=== PATIENT | female | born 1940 | race Caucasian/White ===

== ENCOUNTER 2018-07-17 18:20 | Emergency (ER) | payer MEDICARE, OTHER ==
[~2018-07-17] VITALS: Ht 152.4 cm; Wt 53.5 kg
[~2018-07-17 18:20] MED LIST: PEPCID AC PO; PROTONIX40 M1 PO; PROTONIX40 M2; PYRIDIUM100 MG PO; Z AMLODIPINE ATO PO; Z CRANBERRY PO; Z.0.CELEBREX200 MG PO; Z.0.COQ-10100 MG PO; Z.0.COREG25 MG PO; Z.0.FISH OIL300 MG PO; Z.0.LISINOPRIL20 MG PO; Z.0.OSCAL D500 MG; Z.0.TYLENOL325 MG PO; Z.0.VITAMIN C500 M1 PO; [UNRECOGNIZED DRUG - CODE] PO; [UNRECOGNIZED DRUG - OTHER] PO; [UNRECOGNIZED DRUG - OTHER] PO; [UNRECOGNIZED DRUG - OTHER] PO
--- NOTE | 2018-07-17 20:23 | Diagnostic Imaging Report ---
Exam: Rib series History: Right rib pain Comparison: None. Findings: Nondisplaced right posterolateral rib fracture. No abnormal soft tissue calcification or soft tissue defect. Impression: Nondisplaced right posterolateral rib fracture Signed by: Dr. Sandoval Cosme M.D. on 07/17/2018 8:20 PM
[2018-07-17 20:27] LABS: CLARITY,URINE CLEAR (CLEAR); COLOR,URINE YELLOW (YELLOW); KETONES,URINE NEGATIVE (NEGATIVE); LEUKOCYTE ESTERASE ,URINE NEGATIVE (NEGATIVE); NITRITE,URINE NEGATIVE (NEGATIVE); PROTEIN,URINE DIPSTICK NEGATIVE (NEGATIVE)
[2018-07-17 20:28] LABS: BILIRUBIN,URINE NEGATIVE (NEGATIVE); URINE UROBILINOGEN 0.2 mg/dL (0.2 - 1)
[2018-07-17 20:45] LABS: RBC,URINE 0-5 /HPF (0-5)
[2018-07-17] MEDS ORDERED: KETOROLAC TROMETHAMINE 30 MG/ML VIAL IM STA (21:43)
[2018-07-17 22:55] VITALS: BP 115/83
== END 2018-07-17 22:56 | disposition home or self-care (01) ==
LOC: ER 18:20
DX: S22.31XA Fracture of one rib, right side, initial encounter for closed fracture (principal); Y93.89 Activity, other specified; Y92.019 Unspecified place in single-family (private) house as the place of occurrence of the external cause; W01.198A Fall on same level from slipping, tripping and stumbling with subsequent striking against other object, initial encounter; I10 Essential (primary) hypertension; G20 Parkinson's disease; Z88.5 Allergy status to narcotic agent; I16.9 Hypertensive crisis, unspecified
CPT/HCPCS: 71101; 81001; 99283; J1885

== ENCOUNTER 2020-04-08 22:42 | Inpatient (IN) | payer MEDICARE, OTHER ==
[~2020-04-08] VITALS: Ht 152.4 cm; Wt 65.8 kg
[2020-04-08] MEDS ORDERED: SODIUM CHLORIDE 0.9% 1000ML 1,000 ML IV STA (22:48)
[2020-04-08] MEDS ORDERED: PIPERACILLIN/TAZO 4.5 GM 100 ML IV STA (22:48)
--- NOTE | 2020-04-08 22:55 | Emergency Department Note ---
History of Present Illnes History of Present Illness History of Present Illness This is a 80 year old female brought from [place] for lethargy and weakness. Seen at bedside unable to provide meaningful history. Arrival Mode: [place] History limited by: condition of the patient Gluing Crew Leader Required: No Severity: severe Duration (how long): hour(s) Timing of current episode: constant Progression: worsening Chronicity: new Context: Reports recent immobilization Relieving factors: none Exacerbating factors: none Associated symptoms: Reports denies other symptoms, Reports weakness Past Medical/Family History Physician Review I have reviewed the patient's past medical and family history. Any updates have been documented here. Past Medical History Clinical Suspicion of Infectio: Yes New/Unexplained Change in Ment: Yes Past Medical History: Hypertension Other Medical History: PARKINSONS Past Surgical History: Cholecysctectomy, T&A Other Surgery: knee surgery carpal tunnel Social History Smoking Cessation: Never Smoker Alcohol Use: None Any Illegal Drug Use: No Other Last Tetanus: UNK Review of Systems ROS Narrative Unable to obtain ROS: altered mental status, critical patient Physical Exam Related Data Allergies: Coded Allergies: hydrocodone (Verified Allergy, Mild, NAUSEA, 12/27/11) Vital signs reviewed: Yes Physical Exam CONSTITUTIONAL Constitutional: Present cachectic, Present diaphoretic, Present distressed, Present ill appearing HENT HENT: Present normocephalic, Present atraumatic, Present oropharynx clear/moist, Present nose normal HENT L/R: Present left ext ear normal, Present right ext ear normal EYES Eyes: Reports PERRL, Reports conjunctivae normal NECK Neck: Present ROM normal PULMONARY Pulmonary: Present effort normal, Present breath sounds normal CARDIOVASCULAR Cardiovascular: Present regular rhythm, Present heart sounds normal, Present capillary refill normal, Present bradycardia GASTROINTESTINAL Abdominal: Present soft, Present nontender, Present bowel sounds normal GENITOURINARY Genitourinary: Present exam deferred SKIN Skin: Present dry, Present pale MUSCULOSKELETAL Musculoskeletal: Present ROM normal NEUROLOGICAL Neurological: Present weakness PSYCHOLOGICAL Results Laboratory Lab results reviewed: Yes Laboratory comments Laboratory Tests Test 04/09/20 04:00 04/09/20 03:35 04/09/20 02:50 04/09/20 01:10 Urine Color [place] (YELLOW) Urine Clarity Cloudy (CLEAR) Urine pH 5.5 (5 - 7) Urine Specific [place] 1.015 (1.010-1.025) Urine Protein 1+ (NEGATIVE) Urine Glucose (UA) Negative (NEGATIVE) Urine Ketones Trace (NEGATIVE) Urine Blood Negative (NEGATIVE) Urine Nitrite Negative (NEGATIVE) Urine Bilirubin Small (NEGATIVE) Urine Urobilinogen 1 mg/dL (0.2 - 1) Urine Leukocyte Esterase Negative (NEGATIVE) Urine RBC 6-10 /HPF (0-5) Urine WBC 6-10 /HPF (0-5) Urine Epithelial Cells Few /LPF (NONE) Urine Bacteria Many /HPF (NONE) Urine Hyaline Casts 2-5 (0-1) Urine Mucus Many (RARE) Lactic Acid Level 2.0 mmol/L (0.5-2.0) Venous Blood pH 7.244 (7.35-7.38) Venous Blood Partial Pressure CO2 40.9 (44-48) Venous Blood Partial Pressure O2 36 (40-41) Venous Blood HCO3 17.7 (21-22) Venous Blood Total Carbon Dioxide 19 Venous Blood Oxygen Saturation 59 Venous Blood Base Excess -10 FiO2 44 % White Blood Count 4.55 x10e3/uL (4.8-10.8) Red Blood Count 5.25 x10e6/uL (3.6-5.1) Hemoglobin 15.2 g/dL (12.0-16.0) Hematocrit 44.6 % (34.2-44.1) Mean Corpuscular Volume 85.0 fL (81-99) Mean Corpuscular Hemoglobin 29.0 pg (28-32) Mean Corpuscular Hemoglobin Concent 34.1 g/dL (31-35) Red Cell Distribution Width 13.8 % (11.7-14.4) Platelet Count 243 x10e3/uL (140-360) Neutrophils (%) (Auto) 77.9 % (38.7-80.0) Lymphocytes (%) (Auto) 15.8 % (18.0-39.1) Monocytes (%) (Auto) 5.7 % (4.4-11.3) Eosinophils (%) (Auto) 0.0 % (0.0-6.0) Basophils (%) (Auto) 0.2 % (0.0-1.0) Neutrophils # (Auto) 3.5 (2.1-6.9) Lymphocytes # (Auto) 0.7 (1.0-3.2) Monocytes # (Auto) 0.3 (0.2-0.8) Eosinophils # (Auto) 0.0 (0.0-0.4) Basophils # (Auto) 0.0 (0.0-0.1) Absolute Immature Granulocyte (auto 0.02 x10e3/uL (0-0.1) Sodium Level 135 mmol/L (136-145) Potassium Level 5.0 mmol/L (3.5-5.1) Chloride Level 98 mmol/L (98-107) Carbon Dioxide Level 17 mmol/L (22-29) Anion Gap 25.0 mmol/L (8-16) Blood Urea Nitrogen 29 mg/dL (7-26) Creatinine 1.33 mg/dL (0.57-1.11) Estimat Glomerular Filtration Rate 39 ML/MIN (60-) BUN/Creatinine Ratio 22 (6-25) Glucose Level 120 mg/dL (74-118) Calcium Level 7.4 mg/dL (8.4-10.2) Total Bilirubin 0.8 mg/dL (0.2-1.2) Aspartate Amino Transf (AST/SGOT) 18 IU/L (5-34) Alanine Aminotransferase (ALT/SGPT) < 6 IU/L (0-55) Alkaline Phosphatase 73 IU/L (40-150) Total Protein 5.8 g/dL (6.5-8.1) Albumin 3.1 g/dL (3.5-5.0) Globulin 2.7 g/dL (2.3-3.5) Albumin/Globulin Ratio 1.1 (0.8-2.0) Test 04/08/20 22:50 04/08/20 22:35 White Blood Count 5.24 x10e3/uL (4.8-10.8) Red Blood Count 5.41 x10e6/uL (3.6-5.1) Hemoglobin 15.7 g/dL (12.0-16.0) Hematocrit 46.7 % (34.2-44.1) Mean Corpuscular Volume 86.3 fL (81-99) Mean Corpuscular Hemoglobin 29.0 pg (28-32) Mean Corpuscular Hemoglobin Concent 33.6 g/dL (31-35) Red Cell Distribution Width 13.7 % (11.7-14.4) Platelet Count 257 x10e3/uL (140-360) Neutrophils (%) (Auto) 76.9 % (38.7-80.0) Lymphocytes (%) (Auto) 15.8 % (18.0-39.1) Monocytes (%) (Auto) 6.7 % (4.4-11.3) Eosinophils (%) (Auto) 0.0 % (0.0-6.0) Basophils (%) (Auto) 0.4 % (0.0-1.0) Neutrophils # (Auto) 4.0 (2.1-6.9) Lymphocytes # (Auto) 0.8 (1.0-3.2) Monocytes # (Auto) 0.4 (0.2-0.8) Eosinophils # (Auto) 0.0 (0.0-0.4) Basophils # (Auto) 0.0 (0.0-0.1) Absolute Immature Granulocyte (auto 0.01 x10e3/uL (0-0.1) Sodium Level 133 mmol/L (136-145) Potassium Level 6.6 mmol/L (3.5-5.1) Chloride Level 96 mmol/L (98-107) Carbon Dioxide Level 16 mmol/L (22-29) Anion Gap 27.6 mmol/L (8-16) Blood Urea Nitrogen 28 mg/dL (7-26) Creatinine 1.38 mg/dL (0.57-1.11) Estimat Glomerular Filtration Rate 37 ML/MIN (60-) BUN/Creatinine Ratio 20 (6-25) Glucose Level 135 mg/dL (74-118) Lactic Acid Level 2.2 mmol/L (0.5-2.0) Calcium Level 8.2 mg/dL (8.4-10.2) Total Bilirubin 0.8 mg/dL (0.2-1.2) Aspartate Amino Transf (AST/SGOT) 19 IU/L (5-34) Alanine Aminotransferase (ALT/SGPT) < 6 IU/L (0-55) Alkaline Phosphatase 83 IU/L (40-150) Creatine Kinase 49 IU/L (29-168) Creatine Kinase MB 1.20 ng/mL (0-5.0) Troponin I 0.002 ng/mL (0-0.300) B-Type Natriuretic Peptide 58.1 pg/mL (0-100) Total Protein 6.5 g/dL (6.5-8.1) Albumin 3.5 g/dL (3.5-5.0) Globulin 3.0 g/dL (2.3-3.5) Albumin/Globulin Ratio 1.2 (0.8-2.0) Imaging Imaging results reviewed: Yes Impressions [place] [id number] Patient Name: HANANE LAMAS MR #: [id number] : 1940 Age/Sex: 80/F Req #: [id number] Adm Physician: Ordered by: SIM NEELY DO Report #: [id number] Location: ER Room/Bed: Procedure: [id number] DX/CHEST SINGLE (PORTABLE) Exam Date: Exam Time: REPORT STATUS: Signed EXAMINATION: CHEST SINGLE (PORTABLE) INDICATION: Line placement COMPARISON: 07/17/2018 FINDINGS: AP view TUBES and LINES: And internal jugular vein central line is present. The laterality of the line is difficult to determine due to patient rotation. The tip of the line projects over the midline mediastinum. LUNGS: Limited evaluation due to rotation. No gross consolidation. PLEURA: No pleural effusion or pneumothorax. HEART AND MEDIASTINUM: The cardiomediastinal silhouette is unremarkable. BONES AND SOFT TISSUES: No acute osseous lesion. Soft tissues are unremarkable. UPPER ABDOMEN: No free air under the diaphragm. Gaseous distention of the colon. IMPRESSION: The location of the presumed internal jugular vein central line is difficult to determine due to patient rotation. Dedicated AP and lateral radiographs are recommended if clinically feasible. Signed by: Yana Mason MD on 04/09/2020 12:02 AM Dictated By: YANA MASON MD 0002 Transcribed By: SCOTITE on 04/09/20 0002 COPY TO: SIM NEELY DO~ [place] [address] Patient Name: HANANE LAMAS MR #: [id number] : 1940 Age/Sex: 80/F Req #: [id number] Adm Physician: Ordered by: SIM NEELY DO Report #: [id number] Location: ER Room/Bed: Procedure: [id number] CT/CT BRAIN WO Exam Date: 04/09/20 Exam Time: 444 REPORT STATUS: Signed CT BRAIN WO HISTORY: Altered mental status COMPARISON: None. Technique: Noncontrast axial scans were obtained from skull base to the vertex. Coronal and sagittal reconstructions obtained from the axial data. One or more of the following dose reduction techniques were used: Automated exposure control, adjustment of the mA and/or kV according to patient size, and/or utilization of iterative reconstruction technique. Beam hardening artifacts obscure some details. DISCUSSION: Scalp/Skull: Unremarkable. Brain sulci: Mildly prominent. Ventricles: Compensatory dilatation. Extra-axial spaces: No masses or fluid collections. Carotid and vertebral artery calcifications are present. Parenchyma: Mild bilateral deep white matter hypodensity is likely chronic microvascular ischemic change. Otherwise, no masses, hemorrhage, or large vascular territory acute infarct. Dural sinuses: No abnormal densities. Sellar/Suprasellar region: Intact. Skull base: Intact. Incidental findings: None. IMPRESSION: 1. No acute intracranial abnormalities. 2. Mild supratentorial chronic microvascular ischemic change. Mild generalized cerebral volume loss. Signed by: Dr. Chino Corbin M.D. on 04/09/2020 5:09 AM Dictated By: CHINO CORBIN MD 8 Transcribed By: SCOTTIE on 04/09/20508 COPY TO: SIM NEELY DO~ Procedures 12 Lead ECG Interpretation ECG Interpretation : ECG: ECG 1 Gluing Crew Leader: Interpreted by ED physician Prior ECG tracings: reviewed Rhythm: sinus rhythm Rate: bradycardia BPM: 55 QRS axis: left ST segments normal: Yes Pacin% capture Clinical Impression: non-specific ECG Central Line Placement Central Line Location: left femoral Time out performed: Yes Patient Placed on Monitor/Puls: Yes Prep: mask Local Anesthetic: lidocaine 1% Central Line Lumen Inserted: triple Post Procedure: sutured in place Post Procedure X-ray: tip of catheter in good condition Complications: none Additional comments Initial attempt at CVC in L IJ under US guidance. During seldinger technique, Sonosite abruptly powered down. Procedure completed but appeared malpositioned with s/p CXR imaging. No pulsatile bleeding or blood aspirated. L IJ CVC diego nakul. Critical Care Time Total Critical Care Time (min): 31 Critcal care necessary due to: shock Critcal care time spent by me: develop tx plan w patient/surrogate, discussion w consultants, discussion w primary provider, evaluation patient response to tx, examination of patient, obtaining hx from patient/surrogate, order/perform tx or interventions, order/review radiographic studies, pulse oximetry, re-evaluation of patient condition Assessment & Plan Medical Decision Making MDM 80 yof presents with weakness Diff Dx : Sepsis, PNA, UTI, CVA, electrolyte abl, and COVID-19 infection Reassessment Reassessment Prolong conversation with Daughter Shanta who at length I explained to the daughters that she required admission. Daughter appeared frustrated and upset that patient's mental status had detoriated at the [place]. I relayed to the daughter that although patient's vital signs were stabilizing , her mentation had not improved. I discussed rescusitative efforts with daughter which included RSI for airway protection but states " I do not want her on a ventillator".. Daughter upset that patient did not receive her oral leva-dopa at midnight to which I replied to her that there was risk of aspiration and that we were prioritizing the ABC's of ACLS over patient's home medicatoion. Shanta expressed frustration multiple time and used expletives and profanity during the conversation. At this point I explained to her that I would not tolerate verbal harassment of myself and my nurses. I stated that if we were to have future conversations that she would remain a semblance of civility and respect to myself and my staff. Assessment & Plan Final Impression: (1) COVID-19 (2) Septic shock (3) UTI (urinary tract infection) (4) Diarrhea Depart Disposition: ADMITTED Home Meds Reported Medications Phenazopyridine Hcl (PYRIDIUM) 100 Mg Tablet, 200 PO TID 02/22/15 Ubidecarenone (Coq-10) 100 Mg Capsule, 100 MG PO DAILY 01/11/12 [place]-3 Fatty Acids (Fish Oil) 300 Mg Capsule, 300 MG PO DAILY 01/11/12 Methylsulfonylmethane (Msm) 500 Mg Capsule, 500 MG PO DAILY 01/11/12 Ascorbic Acid (Vitamin C) 500 Mg Tablet, 500 MG PO DAILY 01/11/12 Cyanocobalamin (Vitamin B-12) 250 Mcg Tablet, 250 MCG PO DAILY 01/11/12 Cranberry Extract (Cranberry) 300 Mg Tablet, 300 MG PO DAILY 01/11/12 Calcium Carbonate (OSCAL D) 500 Mg Tab, DAILY 01/11/12 Carvedilol (Coreg) 25 Mg Tablet, 25 MG PO 1-3XD 12/28/11 Clonidine Hcl/Chlorthalidone (Clorpres 0.3-15 Tablet) 1 Each Tablet, 1 EACH PO 1-3XD 12/28/11 Amlodipine/Atorvastatin (AMLODIPINE-ATORVAST 10-10 MG) 1 Each Tablet, 10 MG PO DAILY 12/28/11 Acetaminophen (Tylenol) 325 Mg Tablet, 325 MG PO PRN 12/28/11 Pantoprazole Sodium (Protonix) 40 Mg Suspdr.pkt, 40 MG PO DAILY 12/28/11 Celecoxib (Celebrex) 200 Mg Capsule, 200 MG PO DAILY 12/28/11 Famotidine (PEPCID AC) 20 Mg Tablet, PO DAILY 12/28/11 Lisinopril (Lisinopril) 20 Mg Tablet, 20 MG PO 1-2XD 12/28/11 Physician Attestation Provider Attestation at 1300 . Volume reassessment done at bedside. Patient with MAP >65 mmHg. pressors required for pressure support SIM NEELY DO Apr 08, 2020 22:55
[2020-04-08 23:27] LABS: BASOPHILS % 0.4 % (0.0-1.0); HEMATOCRIT 46.7 % (34.2-44.1); HEMOGLOBIN 15.7 g/dL (12.0-16.0); LYMPHOCYTES # (AUTO) 0.8 (1.0-3.2); LYMPHOCYTES % 15.8 % (18.0-39.1); MEAN CORPUSCULAR HGB CONC 33.6 g/dL (31-35); MEAN CORPUSCULAR VOLUME 86.3 fL (81-99); MONOCYTES # (AUTO) 0.4 (0.2-0.8); MONOCYTES % 6.7 % (4.4-11.3); NEUTROPHILS % 76.9 % (38.7-80.0); PLATELET COUNT 257 x10e3/uL (140-360); RED BLOOD COUNT 5.41 x10e6/uL (3.6-5.1); RED CELL DISTRIBUTION WIDTH 13.7 % (11.7-14.4)
--- NOTE | 2020-04-09 00:05 | Diagnostic Imaging Report ---
EXAMINATION: CHEST SINGLE (PORTABLE) INDICATION: Line placement COMPARISON: 07/17/2018 FINDINGS: AP view TUBES and LINES: And internal jugular vein central line is present. The laterality of the line is difficult to determine due to patient rotation. The tip of the line projects over the midline mediastinum. LUNGS: Limited evaluation due to rotation. No gross consolidation. PLEURA: No pleural effusion or pneumothorax. HEART AND MEDIASTINUM: The cardiomediastinal silhouette is unremarkable. BONES AND SOFT TISSUES: No acute osseous lesion. Soft tissues are unremarkable. UPPER ABDOMEN: No free air under the diaphragm. Gaseous distention of the colon. IMPRESSION: The location of the presumed internal jugular vein central line is difficult to determine due to patient rotation. Dedicated AP and lateral radiographs are recommended if clinically feasible. Signed by: Josemanuel Dominguez MD on 04/09/2020 12:02 AM
[2020-04-09 00:29] LABS: ALBUMIN 3.5 g/dL (3.5-5.0); ALBUMIN/GLOBULIN RATIO 1.2 (0.8-2.0); ALKALINE PHOSPHATASE 83 IU/L (40-150); ANION GAP 27.6 mmol/L (8-16); BLOOD UREA NITROGEN 28 mg/dL (7-26); CALCIUM 8.2 mg/dL (8.4-10.2); CARBON DIOXIDE 16 mmol/L (22-29); CHLORIDE 96 mmol/L (98-107); CREATINE KINASE 49 IU/L (29-168); GLUCOSE 135 mg/dL (74-118); SODIUM 133 mmol/L (136-145)
[2020-04-09 00:35] LABS: ALANINE AMINOTRANSFERASE < 6 IU/L (0-55); B-TYPE NATRIURETIC PEPTIDE2 58.1 pg/mL (0-100)
[2020-04-09 00:37] LABS: POTASSIUM 6.6 mmol/L (3.5-5.1)
[2020-04-09] MEDS ORDERED: INSULIN REGULAR, HUMAN 100 UNIT/1 ML 3ML VIAL IV STA (00:38)
[2020-04-09] MEDS ORDERED: SODIUM BICARBONATE 8.4% INJ 50 ML SYR IV STA (00:38)
[2020-04-09] MEDS ORDERED: DEXTROSE 50% SYRINGE 50 ML IV STA ×2 (00:38→16:08)
[2020-04-09] MEDS ORDERED: FUROSEMIDE INJ 10 MG/ML 4 ML VIAL IV ONE (00:45)
[2020-04-09 00:50] LABS: BUN/CREATININE RATIO 20 (6-25); CREATININE, SERUM 1.38 mg/dL (0.57-1.11); EST GLOMERULAR FILTRATION RATE 37 ML/MIN (60-)
[2020-04-09 01:58] LABS: ALBUMIN 3.1 g/dL (3.5-5.0); ALBUMIN/GLOBULIN RATIO 1.1 (0.8-2.0); ALKALINE PHOSPHATASE 73 IU/L (40-150); BLOOD UREA NITROGEN 29 mg/dL (7-26); BUN/CREATININE RATIO 22 (6-25); CALCIUM 7.4 mg/dL (8.4-10.2); CARBON DIOXIDE 17 mmol/L (22-29); CHLORIDE 98 mmol/L (98-107); CREATININE, SERUM 1.33 mg/dL (0.57-1.11); EST GLOMERULAR FILTRATION RATE 39 ML/MIN (60-); GLUCOSE 120 mg/dL (74-118); SODIUM 135 mmol/L (136-145)
[2020-04-09 02:03] LABS: ALANINE AMINOTRANSFERASE < 6 IU/L (0-55)
[2020-04-09 02:11] LABS: BASOPHILS % 0.2 % (0.0-1.0); HEMATOCRIT 44.6 % (34.2-44.1); HEMOGLOBIN 15.2 g/dL (12.0-16.0); LYMPHOCYTES # (AUTO) 0.7 (1.0-3.2); LYMPHOCYTES % 15.8 % (18.0-39.1); MEAN CORPUSCULAR HGB CONC 34.1 g/dL (31-35); MONOCYTES # (AUTO) 0.3 (0.2-0.8); MONOCYTES % 5.7 % (4.4-11.3); NEUTROPHILS # (AUTO) 3.5 (2.1-6.9); NEUTROPHILS % 77.9 % (38.7-80.0); PLATELET COUNT 243 x10e3/uL (140-360); RED BLOOD COUNT 5.25 x10e6/uL (3.6-5.1); RED CELL DISTRIBUTION WIDTH 13.8 % (11.7-14.4)
[2020-04-09] MEDS ORDERED: SODIUM CHLORIDE 0.9% 1000ML 1,000 ML IV STA ×2 (02:33→15:20)
[2020-04-09] MEDS ORDERED: CEFTRIAXONE SOD 1 GM/NS 50 ML 50 ML IV SCH (02:45)
[2020-04-09] MEDS ORDERED: NOREPINEPHRINE 8 MG/D5W 250 ML 250 ML ONE (03:46)
[2020-04-09] MEDS ORDERED: NOREPINEPHRINE INJ 4MG/4ML 8 MG in DEXTROSE 5% 250ML 250 ML IV STA (03:49)
[2020-04-09] MEDS: CARBIDOPA/LEVODOPA 25/100 TAB PO SCH ×3 (04:00→20:44)
--- NOTE | 2020-04-09 04:00 | NUR ---
16 fr allen catheter inserted per orders using sterile technique. 75cc clear tea colored urine return noted. specimen collected per orders and sent to lab.
[2020-04-09 04:40] LABS: CLARITY,URINE CLOUDY (CLEAR); COLOR,URINE AMBER (YELLOW)
[2020-04-09 04:41] LABS: BILIRUBIN,URINE SMALL (NEGATIVE); KETONES,URINE TRACE (NEGATIVE); LEUKOCYTE ESTERASE ,URINE NEGATIVE (NEGATIVE); NITRITE,URINE NEGATIVE (NEGATIVE); PROTEIN,URINE DIPSTICK 1+ (NEGATIVE); URINE UROBILINOGEN 1 mg/dL (0.2 - 1)
[2020-04-09 04:54] LABS: BACTERIA,URINE MANY /HPF; EPITHELIAL CELLS,URINE FEW /LPF
[2020-04-09 04:55] LABS: MUCUS,URINE MANY (RARE)
--- NOTE | 2020-04-09 05:10 | NUR ---
bp 107/60. levophed decreased to 10mcg/min.
--- NOTE | 2020-04-09 05:13 | Diagnostic Imaging Report ---
CT BRAIN WO HISTORY: Altered mental status COMPARISON: None. Technique: Noncontrast axial scans were obtained from skull base to the vertex. Coronal and sagittal reconstructions obtained from the axial data. One or more of the following dose reduction techniques were used: Automated exposure control, adjustment of the mA and/or kV according to patient size, and/or utilization of iterative reconstruction technique. Beam hardening artifacts obscure some details. DISCUSSION: Scalp/Skull: Unremarkable. Brain sulci: Mildly prominent. Ventricles: Compensatory dilatation. Extra-axial spaces: No masses or fluid collections. Carotid and vertebral artery calcifications are present. Parenchyma: Mild bilateral deep white matter hypodensity is likely chronic microvascular ischemic change. Otherwise, no masses, hemorrhage, or large vascular territory acute infarct. Dural sinuses: No abnormal densities. Sellar/Suprasellar region: Intact. Skull base: Intact. Incidental findings: None. IMPRESSION: 1. No acute intracranial abnormalities. 2. Mild supratentorial chronic microvascular ischemic change. Mild generalized cerebral volume loss. Signed by: Dr. Chino Corbin M.D. on 04/09/2020 5:09 AM
[2020-04-09] MEDS: SODIUM CHLORIDE 0.9% 1000ML 1,000 ML IV SCH ×2 (05:16→13:44)
--- NOTE | 2020-04-09 05:35 | NUR ---
bp 122/80.levophed decreased to 8mcg/min.
[2020-04-09 08:04] LABS: CREATINE KINASE 98 IU/L (29-168)
--- NOTE | 2020-04-09 10:23 | History and Physical ---
HISTORY OF PRESENT ILLNESS: Ms. Tabor is unable to give us any history. She is a 80-year-old female, whom I was not able to get any history. History is obtained from prior records and from ER information, apparently brought to the emergency room. She has apparently history of hypertension and Parkinson disease, and she came with confusion and changes in mental status. I do not know how her prior status was. PAST MEDICAL HISTORY: Apparently, she has hypertension and Parkinson's. PAST SURGICAL HISTORY: She had cholecystectomy and knee surgery. ALLERGIES: SHE IS ALLERGIC TO HYDROCODONE. PHYSICAL EXAMINATION: GENERAL: The patient does not look in distress, but she is unresponsive. She does not follow any commands. VITAL SIGNS: Temperature is 98, blood pressure is 111/70, O2 saturation 100%, pulse is 59. HEART: Regular rate. LUNGS: Poor inspiratory effort. ABDOMEN: Distended and soft. She has a Vieira catheter. LABORATORY DATA: On the blood work; white count is 4.55, hemoglobin is 15.2, hematocrit is 44.6. Potassium 5.0, creatinine is 1.33. COVID is pending. Urine cultures and blood cultures are pending. Chest x-ray needs to be repeated. Head CT, no acute intracranial abnormalities. ASSESSMENT: 1. Sepsis secondary probably to urinary tract infection. 2. Metabolic encephalopathy secondary to infection. 3. Chronic kidney disease, stage 3. 4. Parkinson disease. 5. History of hypertension. PLAN: At the present time is to admit the patient to ICU. Continue to monitor blood pressure. Continue IV antibiotics. We are going to get a Critical Consult with Dr. Tatum and Infectious Disease consult with Dr. Bernal. COVID testing is still pending. The overall prognosis of the patient is poor. I spent more than 45 minutes examining the patient, reviewing overnight event, lab results, prior medical records, and ER notes. MD BAL Castro/NICKIE /[id number]
--- NOTE | 2020-04-09 14:00 | NUR ---
DAUGHTER CALLED, GIVEN SOME UPDATE INFORMATION, BECAME BILIGERANT WITH STAFF, CURSING, CALLED DISCONNECTED D/T FM AGRESSION TO STAFF.
--- NOTE | 2020-04-09 14:00 | NUR ---
DR ARIAS AND ELICEO CAME STAT TO EVAL PT. EXPRESSED CONCERN OF LOW URINE OUTPT AND DARK BROWN COLOR. VO OF DR FENTON GIVEN AND FOLLOWED BY GIVING D50 IVP AND INSULIN 6 UNITS IVP. SET UP FOR NGT. CT TO BE DONE STAT. PT DOES AWAKE TO PAINFUL STIMULI. VSS. REMAINS OF LEVAPHED. EXPRESSED CONCERN TO R/O PERF BOWEL.
[2020-04-09] MEDS ORDERED: SODIUM BICARBONATE 8.4% 50 ML in SODIUM CHLORIDE 0.45% 1,000 ML IV ONE (14:30)
[2020-04-09 14:56] LABS: ABG HCO3 14 mmol/L (22-26); ABG PCO2 26 mmHg (35-45); ABG PH 7.36 (7.35-7.45); ABG PO2 149 mmHg (80-105)
[2020-04-09] MEDS ORDERED: AZITHROMYCIN 500MG/NS 250 ML 250 ML IV SCH (15:00)
--- NOTE | 2020-04-09 15:00 | NUR ---
ABG PER DR ARIAS, GIVEN TO DR ARIAS. PT AROUSABLE, DOES NOT OPEN EYES, MOANS, WITHDRAWS FROM PAIN. REMAINS ON LEVAPHED, IVF. CLEANED WATERY BROWN BM, SHEETS CLEAN AND PT CLEANED.
[2020-04-09] MEDS ORDERED: INSULIN REGULAR, HUMAN 100 UNIT/1 ML 3ML VIAL ONE (15:17)
[2020-04-09] MEDS ORDERED: DEXTROSE 50% SYRINGE 50 ML IV ONE (15:18)
[2020-04-09] MEDS ORDERED: VANCOMYCIN 1GM/NS 250 ML 250 ML IV ONE (15:30)
[2020-04-09] MEDS ORDERED: DEXTROSE 5% IV SCH (15:30)
[2020-04-09] MEDS ORDERED: SODIUM BICARBONATE 8.4% IV SCH (15:30)
--- NOTE | 2020-04-09 15:41 | Diagnostic Imaging Report ---
EXAMINATION: CHEST SINGLE (PORTABLE) INDICATION: Septic shock COMPARISON: Chest radiograph 04/08/2020 FINDINGS: LINES/TUBES:EKG leads overlie the chest. LUNGS:The lung volumes are low. Mild right basilar patchy opacities. PLEURA:No pleural effusion or pneumothorax. MEDIASTINUM:The cardiomediastinal silhouette appears normal in size and shape. Atherosclerotic calcifications of the thoracic aorta. BONES/SOFT TISSUES:No acute osseous injury. ABDOMEN:No free air under the diaphragm. Status post cholecystectomy. IMPRESSION: Low lung volumes. Mild right basilar patchy opacities, most likely subsegmental atelectasis. Superimposed pneumonitis could also have this appearance and should be excluded clinically. Signed by: Shahbaz Solis MD on 04/09/2020 3:38 PM
[2020-04-09] MEDS ORDERED: DIATRIZOATE MEGL/DIATRIZOA SOD 30 ML BTL PO ONE (15:57)
[2020-04-09] MEDS ORDERED: INSULIN REGULAR, HUMAN 100 UNIT/1 ML 3ML VIAL IV ONE (16:15)
[2020-04-09] MEDS: NOREPINEPHRINE INJ 4MG/4ML 8 MG in DEXTROSE 5% 250ML 250 ML IV SCH (16:30)
--- NOTE | 2020-04-09 16:35 | NUR ---
PT BP DROPPED, RAPID CALLED, MULTIPLE MDS PRESENT, MULTIPLE RT'S AND RN'S. PT GIVEN ONE AMP ATROPINE PER DR ARIAS FOR BRADYCARDIA. INCREASED LEVAPHED. PT BACK TO SINUS WITH NORMO TENSIVE BP'S, SATS 99 ON 2 LPM, PLACED ON END TITLE MEASUREMENTS PER MD. END TITLE 22. MD TO WATCH CLOSE AND RE-EVAL AND NOT TO INTUBATE AT THIS TIME.
[2020-04-09] MEDS ORDERED: CEFTRIAXONE SOD 1 GM VIAL ONE (17:50)
[2020-04-09] MEDS: CEFTRIAXONE SOD 1 GM/NS 50 ML 50 ML IV SCH (17:54)
[2020-04-09] MEDS: FAMOTIDINE 20 MG/2 ML VIAL IV SCH (17:54)
[2020-04-09] MEDS: SODIUM BICARBONATE 8.4% 150 ML in STERILE WATER IV SOLN 1,000 ML IV SCH (17:54)
[2020-04-09] MEDS: ENOXAPARIN SOD INJ 40 MG/0.4 ML SYR SC SCH (17:55)
--- NOTE | 2020-04-09 18:02 | NUR ---
PT HAD LARGE WATERY BROWN LIQUID BM, FOUL SMELL, DR ARIAS AWARE, ORDER RECTAL TUBE, PLACED, PT CLEANED COMPLETELY AND CHANGED ALL LINENS AND LINES. REMAINS IVF'S BICARB DRIP AND LEVAPHED AT 2O MCG/MIN, VSS. HOB ELEVATED 45 DEGREES. ON WAFFLE MATRESS. INCREASE NOTED IN URINE OUTPT AND LIGHTENED SOME. NOW MORE RIGO IN COLOR THAN BROWN. CONTINUE TO MONITOR.
--- NOTE | 2020-04-09 18:16 | NUR ---
ATTEMPTED CALL TO DAUGHTER. LEFT MESSAGE. OBTAINED ADMINISTRATIVE APPROVAL TO ALLOW PTS DAUGHTER TO COME SEE PT.
--- NOTE | 2020-04-09 18:40 | NUR ---
SPOKE TO VERY NICE DAUGHTER, MCKINLEY. UPDATED ON ALL INFORMATION.
[2020-04-09 18:41] LABS: BASOPHILS % 0.2 % (0.0-1.0); HEMATOCRIT 44.7 % (34.2-44.1); HEMOGLOBIN 14.4 g/dL (12.0-16.0); LYMPHOCYTES # (AUTO) 0.8 (1.0-3.2); LYMPHOCYTES % 8.8 % (18.0-39.1); MEAN CORPUSCULAR HEMOGLOBIN 28.6 pg (28-32); MEAN CORPUSCULAR HGB CONC 32.2 g/dL (31-35); MEAN CORPUSCULAR VOLUME 88.7 fL (81-99); MONOCYTES # (AUTO) 0.5 (0.2-0.8); MONOCYTES % 5.9 % (4.4-11.3); NEUTROPHILS # (AUTO) 7.5 (2.1-6.9); NEUTROPHILS % 84.3 % (38.7-80.0); PLATELET COUNT 219 x10e3/uL (140-360); RED BLOOD COUNT 5.04 x10e6/uL (3.6-5.1); RED CELL DISTRIBUTION WIDTH 14.5 % (11.7-14.4)
[2020-04-09 19:00] LABS: ALBUMIN 2.2 g/dL (3.5-5.0); ALBUMIN/GLOBULIN RATIO 0.8 (0.8-2.0); ALKALINE PHOSPHATASE 46 IU/L (40-150); ANION GAP 20.4 mmol/L (8-16); BLOOD UREA NITROGEN 34 mg/dL (7-26); BUN/CREATININE RATIO 26 (6-25); CARBON DIOXIDE 13 mmol/L (22-29); CHLORIDE 109 mmol/L (98-107); CREATININE, SERUM 1.32 mg/dL (0.57-1.11); EST GLOMERULAR FILTRATION RATE 39 ML/MIN (60-); GLUCOSE 100 mg/dL (74-118); POTASSIUM 3.4 mmol/L (3.5-5.1); SODIUM 139 mmol/L (136-145)
[2020-04-09 19:03] LABS: ALANINE AMINOTRANSFERASE < 6 IU/L (0-55)
[2020-04-09 19:04] LABS: CALCIUM 6.6 mg/dL (8.4-10.2); CREATININE,URINE RANDOM 20.81 mg/dL (47-110)
--- NOTE | 2020-04-09 19:21 | NUR ---
BP 120/83. LEVOPHED DECREASED TO 16MCG/MIN
--- NOTE | 2020-04-09 20:00 | NUR ---
PT DAUGHTER AT WINDOW RAISING VOICE WHILE SPEAKING TO MD. PT ESCORTED OUTSIDE. MD ATTEMPTED TO SPEAK WITH DAUGHTER. DAUGHTER WOULD NOT ALLOW MD TO SPEAK. MD DISCONTINUED CONVERSATION. THIS NURSE REMAINED WITH DAUGHTER AND SPOKE TO HER REGARDING PT CONDITION, PLAN OF CARE. DAUGHTER CALM AT THIS TIME. PT DID VERBALIZE FRUSTRATION C VISITATION POLICY. DAUGHTER ALSO VERBALIZED CONCERNS REGARDING PATIENT TESTING POSITIVE FOR COVID. LISTENED TO CONCERNS, INFORMED THAT PT STABLE AND THAT WOULD BE GOING TO ROOM P CT SCAN.
--- NOTE | 2020-04-09 20:30 | NUR ---
BP 133/89. LEVOPHED DECREASED TO 14MCG/MIN.
[2020-04-09] MEDS ORDERED: MEROPENEM 500MG/ NS 50ML 50 ML IV SCH (21:00)
[2020-04-09 21:08] LABS: CREATINE KINASE MB 10.2 ng/mL (0-5.0)
[2020-04-09 21:21] VITALS: BP_SYST 92; BP_SYST 97; BP_DIAS 74
--- NOTE | 2020-04-09 21:21 | Consultation ---
DATE OF CONSULTATION: Pulmonary and Critical Care Consultation HISTORY OF PRESENT ILLNESS: The patient is a 80-year-old woman. She has a history of Parkinson disease. She also has a history of recurrent gastrointestinal problems and prior peptic ulcer. She required hospitalization at [facility] for 2 weeks in May of 2019. She subsequently [facility] to [facility] From [facility], she was transferred to [facility]. She has been at [facility] over the past several months. Apparently, she has problems with recurrent constipation. According to the daughter, they were giving her an enema yesterday when she had difficulty and developed abdominal pain. She was then taken to the emergency department and appears to be unresponsive. She also had decreased urine output. She received antibiotics and intravenous fluids. Her urine output has improved, but is still very dark and she is not responding well. PAST SURGICAL HISTORY: 1. Status post cholecystectomy. 2. Status post knee surgery. PAST MEDICAL HISTORY: 1. Parkinson disease. 2. Recurrent constipation. 3. Peptic ulcer disease. 4. No prior history of respiratory problems. 5. No prior history of heart problems. ALLERGIES: THE PATIENT IS ALLERGIC TO HYDROCODONE. SOCIAL HISTORY: The patient is not a smoker or drinker. Her daughter is very involved in her care and is her power of herb grower. FAMILY HISTORY: Family history is noncontributory. REVIEW OF SYSTEMS: The patient is afebrile. She is not responding well. She has no neck pain. She is not having any chest pain. She has decreased breath sounds at the bases. There is no report of dyspnea or cough. She did have some abdominal discomfort yesterday and had constipation. Apparently, she had problems after an enema that precipitated her transfer to the hospital. She has no leg swelling. She has no rashes. PHYSICAL EXAMINATION: VITAL SIGNS: The patient is afebrile. The blood pressure is 126/84, on Levophed at 12 mcg. Her pulse is 56 and the respiratory rate is 16. HEENT: Shows no facial swelling or erythema. CARDIAC: Reveals regular rate and rhythm with normal S1 and S2. LUNGS: Auscultation of lungs reveals decreased breath sounds at the bases. There is no wheezing. ABDOMEN: Soft and nontender. There is no rebound or guarding. EXTREMITIES: Shows no leg edema or calf tenderness. The patient does have rigidity and increased muscle tone suggestive of Parkinson disease. LABORATORY DATA: The BUN to creatinine ratio is 29 to 1.33, and the carbon dioxide is 17. The potassium is 5. The albumin is 3.1. The white blood cell count is 4.55 and hemoglobin is 15.2. The platelet count is 243. RADIOGRAPHIC DATA: Chest x-ray from yesterday shows no gross consolidations. CT scan of the head shows no acute abnormalities. IMPRESSION: 1. Severe sepsis with unclear source. 2. Acute kidney injury. 3. Parkinson disease. 4. Recurrent constipation and abdominal pain. 5. Metabolic acidosis. 6. Hyperkalemia. PLAN: 1. Continue intravenous fluids. 2. Supplemental bicarbonate. 3. The patient has been jimenez-cultured and will receive broad-spectrum antibiotics. 4. She will need coverage for healthcare associated pathogens because of her history of staying at nursing facilities. 5. CT scan of the abdomen and pelvis. 6. Nephrology consultation. 7. Restart the patient's anti-parkinsonian regimen. 8. Wean Levophed as tolerated. 9. Case discussed with daughter and Nephrology. Vernon Tatum MD LM/INGRIDL /[id number]
--- NOTE | 2020-04-09 21:31 | Consultation ---
DATE OF CONSULTATION: 04/09/2020 HISTORY OF PRESENT ILLNESS: A 80-year-old female, resident of longterm, presently brought into the emergency room, found to be hypotensive and suspicion of sepsis and COVID. Currently, the patient is quite obtunded. She is barely arousable. She has a dressing noted left IJ area. She has an indwelling Vieira catheter with dark yellow urine. She is unable to give me any history. Unable to follow any commands. Unable to get any review of systems. ALLERGIES: SHE IS APPARENTLY ALLERGIC TO HYDROCODONE. LABORATORY DATA: Her labs show urinalysis, specific gravity 1.015, dipstick positive protein, rbc's 6-10, wbc's 6-10, hyaline casts 2-5. Chemistry shows sodium 135, potassium 5, chloride 98, bicarb 17, anion gap 25, BUN 29, creatinine 1.33, blood sugar 120, lactic acid of 2, calcium 7.4. Troponin I less than 0.001. BNP of 58, albumin of 3.1. CBC shows white count 4.5, hemoglobin 15.2, with a platelet count of 243. She had a blood gas 7.3, 626, 149, and 14. She has COVID PCR pending. CURRENT MEDICATIONS: She has been started on carbidopa/levodopa, received 1 g of vancomycin, received 4.5 g of Zosyn yesterday. Currently on Pepcid 20 mg IV b.i.d., enoxaparin 40 subcu daily, insulin sliding scale, meropenem 500 mg q.12, ceftriaxone was stopped, cutting on azithromycin. Received a liter of normal saline and then was on normal saline 125 mL an hour. Currently started on half NS with bicarb. The patient has a daughter. I do not have any history whether the patient is a smoker or not. She lives at [facility]. Past history of Parkinson's apparently. She has been here in the emergency room several times. She apparently had a lumbar facetectomy done in 2011. Most of her visits have been due to abdominal pain or left-sided pain or numbness. This is all in [id number]. She was found to be hypotensive initially. PHYSICAL EXAMINATION: VITAL SIGNS: At the moment, blood pressure is 126/84, pulse rate of 56, respiratory rate 16, oxygen saturation 100%. HEAD AND NECK: Pupils difficult to examine. No icterus noted. Oral mucosa dry. NECK: Neck veins flat. There was some swelling noted right side IJ. Dressing noted. No hematoma. LUNGS: Relatively clear, supine exam. No rales. HEART: S1 and S2 audible. ABDOMEN: Otherwise is tender. No rebound noted. No visceromegaly noted. No deep palpation done. Extremities: Lower extremity examination, no edema. The patient had a CT brain shows no acute intracranial abnormalities, some ischemic changes, chronic noted. IMPRESSION AND PLAN: 1. Acute kidney injury in a patient with septic, was hypotensive, possible coronavirus positive with metabolic acidosis, high anion gap. 2. History of diabetes. 3. Parkinson's, longterm patient. Discussed with Dr. Tatum and bedside RN. We will give one amp D50 and 6 units regular insulin. Discontinue existing IV fluids. Start IV bicarbonate. We will give another bolus of normal saline. Agree with CT abdomen and pelvis. Please avoid IV contrast. I will send urine for sodium and creatinine, calculate fraction excretion of sodium. Also check her CK, was 49. Etiology of acidosis most likely sepsis, hypotension, kidney failure. Serum creatinine is 1.33. Lactic acid is 2. Agree with antibiotics. Overall prognosis is guarded. We will obtain a uric acid level as well. Further recommendations to follow. Ary Gonzales MD SAK/MODL /[id number]
--- NOTE | 2020-04-09 21:43 | NUR ---
BP 116/76 LEVOPHED DECREASED TO 12MCG/MIN
--- NOTE | 2020-04-09 21:47 | Diagnostic Imaging Report ---
EXAM: CT Abdomen and Pelvis WITHOUT contrast INDICATION: ^abdominal pain constipation ^[id number] ^2037 COMPARISON: None. TECHNIQUE: Abdomen and pelvis were scanned utilizing a multidetector helical scanner from the lung base to the pubic symphysis without administration of IV contrast. Absence of intravenous contrast decreases sensitivity for detection of focal lesions and vascular pathology. Coronal and sagittal reformations were obtained. Routine protocol was performed. IV CONTRAST: None ORAL CONTRAST: None COMPLICATIONS: None RADIATION DOSE: Total DLP: 642 mGy*cm Estimated effective dose: (DLP x 0.015 x size factor) mSv CTDIvol has been reviewed. It is below the limits set by the Radiation Protocol Committee (RPC). Dose modulation, iterative reconstruction, and/or weight based adjustment of the mA/kV was utilized to reduce the radiation dose to as low as reasonably achievable. FINDINGS: LINES and TUBES: Left femoral central venous catheter terminates in the external iliac vein. LOWER THORAX: Small bilateral pleural effusions, right greater than left, with adjacent passive atelectasis. HEPATOBILIARY: Limited evaluation. No distinct lesion. No biliary ductal dilatation. GALLBLADDER: Surgically absent. SPLEEN: No splenomegaly. PANCREAS: No focal masses or ductal dilatation. ADRENALS: No adrenal nodules KIDNEYS/URETERS: Grossly unremarkable. GI TRACT: The rectum and sigmoid colon are distended by stool and demonstrate mild circumferential wall thickening. A large bore rectal tube is present. Mild circumferential wall thickening of the distal descending colon with adjacent mesenteric inflammation. No specific evidence of bowel obstruction. PELVIC ORGANS/BLADDER: The urinary bladder is decompressed by a catheter and contains air. The uterus is absent. LYMPH NODES: Poorly evaluated. No gross adenopathy. VESSELS: Scattered atherosclerotic calcifications. PERITONEUM / RETROPERITONEUM: Small amount of perihepatic and deep pelvic free fluid. Stranding of the central mesenteric fat possibly reflective of edema. No discrete free intraperitoneal air. BONES: No acute osseous abnormality. SOFT TISSUES: Grossly unremarkable. IMPRESSION: 1. The sigmoid colon and rectum are distended by stool and demonstrate inflammatory change suggestive of stercoral colitis. Additional nonspecific inflammation of the descending colon. No specific evidence of bowel obstruction. 2. Small amount of nonspecific free fluid in the abdomen and pelvis. Signed by: Josemanuel Dominguez MD on 04/09/2020 9:43 PM
[2020-04-09 22:00] VITALS: BP 113/72
[2020-04-09 23:00] VITALS: BP 115/77
[2020-04-09 23:15] VITALS: BP 80/73
--- NOTE | 2020-04-09 23:21 | Consultation ---
DATE OF CONSULTATION: REASON FOR CONSULTATION: UTI. HISTORY OF PRESENT ILLNESS: This is a 80-year-old white female, not a good source of information, comes to the emergency room for shortness of breath. The patient has history of hypertension, Parkinson's disease, does not really provide any information. She seems to be comfortable to me. The patient when she first came, her white count 5.2, hemoglobin of 15, sodium 135, potassium 5.0 with creatinine of 1.33 with lactic acid 2.2. Her COVID-19 is still pending. The patient is currently on meropenem and vancomycin. PAST MEDICAL HISTORY: Significant for Parkinson's disease and dementia. PAST SURGICAL HISTORY: Not available. ALLERGIES: NKA. SOCIAL HISTORY: There is no smoking, drug abuse, or alcohol abuse. FAMILY HISTORY: Unremarkable. IMAGING: She had a chest x-ray, which showed low lung volume, mild right patchy opacity. PHYSICAL EXAMINATION: GENERAL: Currently alert. VITALS SIGNS: Stable. Currently afebrile. HEENT: She is not icteric. NECK: Supple. CHEST: Few crackles bilateral. COR: S1 and S2. ABDOMEN: Soft. IMPRESSION: Sepsis on admission source probably urinary tract infection. I recommended Rocephin 1 g daily. Await blood cultures, urine cultures. Discontinue meropenem. Discontinue vancomycin. Discontinue Zosyn. Continue with supportive care. Await blood cultures, await urine cultures. Recheck CBC. Recheck Chem panel. Await testing results. We will re-evaluate again later. Thank you for asking me to see this patient. MD ALMA ROSA Nava/NICKIE /[id number]
[2020-04-10] VITALS (33 sets, daily range): BP systolic 74–170; BP diastolic 49–96
[2020-04-10] MEDS ORDERED: AMANTADINE HCL 100 MG CAP PO SCH (01:00)
[2020-04-10] MEDS ORDERED: CARBIDOPA/LEVODOPA 25/100 TAB ONE ×2 (01:51→13:30)
[2020-04-10] MEDS ORDERED: NOREPINEPHRINE 8 MG/D5W 250 ML 500 ML ONE (01:52)
--- NOTE | 2020-04-10 03:31 | Diagnostic Imaging Report ---
EXAM: Abdomen Radiograph 1 View(s) INDICATION: ^NGT VERIFICATION ^Y COMPARISON: None FINDINGS: The tip of the NG tube projects over the gastric body. Gaseous distention of the colon. Large amount of stool within the distal colon. No specific evidence of bowel obstruction. No abnormal soft tissue calcification. No distinct free intraperitoneal air. IMPRESSION: The tip of the nasogastric tube projects over the gastric body. Signed by: Josemanuel Dominguez MD on 04/10/2020 3:27 AM
[2020-04-10] MEDS: CARBIDOPA/LEVODOPA 25/100 TAB PO SCH ×7 (06:00→22:36)
[2020-04-10 06:07] LABS: HEMATOCRIT 40.1 % (34.2-44.1); HEMOGLOBIN 13.8 g/dL (12.0-16.0); MEAN CORPUSCULAR HEMOGLOBIN 28.7 pg (28-32); MEAN CORPUSCULAR HGB CONC 34.4 g/dL (31-35); MEAN CORPUSCULAR VOLUME 83.4 fL (81-99); PLATELET COUNT 209 x10e3/uL (140-360); RED BLOOD COUNT 4.81 x10e6/uL (3.6-5.1); RED CELL DISTRIBUTION WIDTH 14.2 % (11.7-14.4)
[2020-04-10 06:29] LABS: INR 1.45; PROTHROMBIN TIME 18.6 seconds (11.9-14.5)
[2020-04-10 06:58] LABS: ALBUMIN/GLOBULIN RATIO 0.7 (0.8-2.0); ALKALINE PHOSPHATASE 45 IU/L (40-150); ANION GAP 17.7 mmol/L (8-16); BLOOD UREA NITROGEN 39 mg/dL (7-26); BUN/CREATININE RATIO 36 (6-25); CARBON DIOXIDE 18 mmol/L (22-29); CHLORIDE 107 mmol/L (98-107); CREATININE, SERUM 1.07 mg/dL (0.57-1.11); EST GLOMERULAR FILTRATION RATE 50 ML/MIN (60-); GLUCOSE 80 mg/dL (74-118); POTASSIUM 3.7 mmol/L (3.5-5.1); SODIUM 139 mmol/L (136-145)
[2020-04-10 06:59] LABS: ALANINE AMINOTRANSFERASE < 6 IU/L (0-55)
[2020-04-10] MEDS: SODIUM BICARBONATE 8.4% 150 ML in STERILE WATER IV SOLN 1,000 ML IV SCH ×3 (07:01→16:26)
[2020-04-10 07:07] LABS: CALCIUM 6.3 mg/dL (8.4-10.2)
[2020-04-10 07:37] LABS: CREATINE KINASE MB 10.2 ng/mL (0-5.0)
--- NOTE | 2020-04-10 08:13 | Progress Note ---
DATE: 04/10/2020 SUBJECTIVE: Ms. Tabor was unable to give any history. She was admitted to ICU, came back positive for COVID. She is a 80-year-old female with prior history of Parkinson disease, hypertension, and recurrent constipation, brought to the emergency room with shortness of breath and changes in mental status. She was found to be septic, admitted to ICU with sepsis probably due to a UTI. COVID test came back positive. OBJECTIVE: GENERAL: Unresponsive. VITAL SIGNS: Temperature is 96, blood pressure 112/72, heart rate is 71, respiratory rate is 16. LABORATORY DATA: Blood work; white count 9.22, hemoglobin 13.8, hematocrit 44.1, potassium 3.7, creatinine 1.07. COVID came back negative. Cultures are still pending. ASSESSMENT AND PLAN: 1. Positive coronavirus disease infection. 2. Septic shock. 3. Urinary tract infection. 4. Metabolic encephalopathy, multifactorial. 5. Chronic kidney disease, stage 3. 6. Parkinson disease. 7. History of hypertension. PLAN: At present time, she is to use vasopressors as needed. Continue IV fluids. Continue IV antibiotics. Nephrology, Critical Care and Infectious Disease are seeing the patient with me. The overall prognosis of this patient is very poor due to all her medical conditions. MD BAL Castro/MODL /[id number]
--- NOTE | 2020-04-10 08:23 | NUR ---
Pt transfered to [facility] at approx 2140. pt lethargic,non verbal, opens eyes to painful stimuli. coivd 19 detected, oxygen on 2L-3L, stable. notified Dr Savannah Tatum, who ordered to restart pt's home meds, inserted an NGT per order. notified DR Owen Khan---GI, and DR Toro--neuro. Cavadopa-levadopa given as ordered. pt stable, report given to the oncoming RN.
[2020-04-10] MEDS ORDERED: OYST-CAL-D 500MG TABLET PO SCH (09:00)
[2020-04-10] MEDS ORDERED: NON-FORMULARY MEDICATION PO SCH (09:00)
--- NOTE | 2020-04-10 09:58 | Consultation ---
DATE OF CONSULTATION: 04/10/2020 Neurology Consultation HISTORY OF PRESENT ILLNESS: Ms. Tabor is a 80-year-old female with history of Parkinson disease, who was in the [facility], brought in due to confusion, mental status changes and cognitive decline in her clinical status. She is unable to give past medical history. I was asked to contact the family if it possible. I spoke directly with her afterwards daughter and I left a 2nd phone call, which was not picked up with the daughter. She has a known history of Parkinson disease, has history of cholecystectomy, knee surgery, on hydrocodone. She is not able to give review of systems and past medical history given her clinical status. PHYSICAL EXAMINATION: VITAL SIGNS: Temperature is 96.0, pulse 71, blood pressure is 117/74. GENERAL: Her exam shows severely encephalopathic or obtunded elderly female arousable but not able to maintain consciousness. HEENT: Her extraocular muscles are intact. Doll's eyes. Pupils are reactive. She will look at the examiner if stimulated but then will quickly fall asleep. There is no nuchal rigidity. She does have increased muscle tone in neck and arms consistent with Parkinson disease. CARDIOVASCULAR: Regular rate and rhythm. PULMONARY: She is mouth breathing, but she sounds just mild crackles in the bases. I do not hear any rhonchi. ABDOMEN: Soft and nontender. NEURO: Reflexes are 1/4 as far as withdrawal to noxious stimulation. She has at least 3/5 in uppers and lowers bilaterally, but she is not following any commands. ASSESSMENT AND PLAN: The patient comes in with sepsis and COVID-19. Has prior history of Parkinson disease, takes Sinemet, amantadine, and entacapone. Amantadine caused hallucinations. I am going to hold that medicine. I am going to continue her on Sinemet if she can get it safely p.o. and entacapone, but at this time it might be given clinical status, the patient cannot probably need to remain off p.o. medications, so she can safely swallow given the risk of aspiration. GRIFFIN JAVIER MD RR/MODL /[id number]
--- NOTE | 2020-04-10 10:08 | Progress Note ---
DATE: Pulmonary Critical Care progress note SUBJECTIVE: The patient is now in the ICU. She is on nasal cannula. Her Levophed is being weaned. She is down to 8 mcg. She had an NG tube placed and is starting to receive her Sinemet. She also had a CT scan that showed some severe constipation and stercoral colitis. The patient is still not responding well. She was seen by Neurology as well as Nephrology. PHYSICAL EXAMINATION: VITAL SIGNS: The blood pressure is now 100/61 on Levophed at 8 mcg. Pulse ox is 96% on 3 L and the pulse is 64. She is afebrile. HEENT: No facial swelling or erythema. CARDIAC: Regular rate and rhythm with normal S1, S2. LUNGS: Auscultation of lungs reveals rhonchorous breath sounds bilaterally. There is no wheezing. ABDOMEN: Soft, nontender. There is no rebound or guarding. EXTREMITIES: No leg edema or calf tenderness. There is no cyanosis or clubbing. SKIN: No rashes. NEUROLOGICAL: No focal abnormalities. The patient is not responding well. She has increased muscle tone suggestive of Parkinson disease. LABORATORY DATA: BUN to creatinine ratio is 39 to 1.07 and the carbon dioxide is 18 with chloride of 107. Albumin is 2.0. White blood cell count is 9.2 and hemoglobin is 13.8. The platelet count is 209. IMPRESSION: 1. Acute kidney injury. 2. Parkinson disease. 3. Stercoral colitis. 4. Metabolic acidosis. 5. Urinary tract infection with sepsis, present on admission. 6. Viral pneumonia and coronavirus disease-19 infection. PLAN: 1. Continue current antibiotics. 2. GI evaluation later today. 3. Continue IV fluids and repeat kidney testing. 4. Continue Sinemet and prior Parkinson's medications. Follow with suggestions of Neurology. 5. Wean oxygen as tolerated. 6. Wean Levophed. 7. Physical therapy. Case discussed with nursing, Neurology, Nephrology and Respiratory. Greater than 35 minutes in direct critical care time. Vernon Tatum MD LM/INGRIDL /[id number]
[2020-04-10] MEDS: FAMOTIDINE 20 MG/2 ML VIAL IV SCH ×2 (10:11→16:24)
[2020-04-10] MEDS: PANTOPRAZOLE 40 MG 10ML VIAL IV SCH (10:11)
[2020-04-10] MEDS: CYANOCOBALAMIN 1,000 MCG TAB PO SCH (10:12)
[2020-04-10 10:16] LABS: BAND NEUTROPHILS % (MANUAL) 19 %; LYMPHOCYTES % (MANUAL) 9 % (19-48); METAMYELOCYTES % (MANUAL) 3 % (0-0); MONOCYTES % (MANUAL) 2 % (3.4-9.0); NEUTROPHILS % (MANUAL) 67 % (40-74)
[2020-04-10 10:17] LABS: PLATELET ESTIMATE ADEQUATE; PLATELET MORPHOLOGY COMMENT NORMAL; POIKILOCYTOSIS SLIGHT; RBC MORPHOLOGY COMMENT NORMAL
--- NOTE | 2020-04-10 10:49 | Progress Note ---
DATE: 04/10/2020 Nephrology Followup Note SUBJECTIVE: The patient did not appear to be in any acute distress. No new issues overnight. OBJECTIVE: VITAL SIGNS: Blood pressure 100/61, respirations 17, heart rate 64, temperature 96.7. I's and O's 3 L in and 575 out. In view of COVID-19 positive, the patient was not physically examined. LABORATORY DATA: White cell count 9.2, hemoglobin 13.8, hematocrit 40.1, platelets 209. Sodium 139, potassium 3.7, chloride 107, CO2 18 from 13 yesterday, BUN 39, creatinine 1.07, down from 1.3 yesterday. Calcium 6.3. Albumin 2. IMPRESSION: 1. Acute kidney injury with improved serum creatinine and moderate urine output with stable electrolytes and metabolic profile. 2. Mild hypocalcemia, on oscal once a day. 3. Abdominal pain, probably from colitis as seen on CT scan. PLAN: Strict I's and Os. Continue present treatment with IV fluids and bicarb for now. Check BMP in a.m. Increase Os-Leo to 1 tablet twice a day. Further recommendations to follow. Peter Montes MD SA/NICKIE /[id number] MTDD
[2020-04-10] MEDS ORDERED: CYANOCOBALAMIN 1,000 MCG TAB ONE (13:30)
[2020-04-10] MEDS ORDERED: CALCIUM CARBONATE 500 MG CHEWABLE TABS ONE ×2 (13:30)
[2020-04-10] MEDS ORDERED: PANTOPRAZOLE SOD 40 MG TABEC ONE (13:30)
[2020-04-10] MEDS ORDERED: ASCORBIC ACID 500 MG TAB ONE (13:30)
[2020-04-10] MEDS ORDERED: FAMOTIDINE 20 MG/2 ML VIAL IV ONE (13:30)
[2020-04-10] MEDS ORDERED: ENOXAPARIN SOD INJ 40 MG/0.4 ML SYR SC ONE (13:30)
[2020-04-10] MEDS ORDERED: AMANTADINE HCL 100 MG CAP ONE (13:30)
[2020-04-10] MEDS: VANCOMYCIN HCL 1.25 GM in SODIUM CHLORIDE 0.9% 250ML 250 ML IV SCH (14:59)
[2020-04-10] MEDS: NON-FORMULARY MEDICATION PO SCH ×2 (15:02→17:00)
--- NOTE | 2020-04-10 15:47 | NUR ---
he patient is now in the ICU. She is on nasal cannula. Her Levophed is being weaned. She is down to 8 mcg. She had an NG tube placed and is starting to receive her Sinemet. She also had a CT scan that showed some severe constipation and stercoral colitis. The patient is still not responding well. She was seen by Neurology as well as Nephrology. PHYSICAL EXAMINATION: VITAL SIGNS: The blood pressure is now 100/61 on Levophed at 8 mcg. Pulse ox is 96% on 3 L and the pulse is 64. She is afebrile. HEENT: No facial swelling or erythema. CARDIAC: Regular rate and rhythm with normal S1, S2. LUNGS: Auscultation of lungs reveals rhonchorous breath sounds bilaterally. There is no wheezing. ABDOMEN: Soft, nontender. There is no rebound or guarding. EXTREMITIES: No leg edema or calf tenderness. There is no cyanosis or clubbing. SKIN: No rashes. NEUROLOGICAL: No focal abnormalities. The patient is not responding well. She has increased muscle tone suggestive of Parkinson disease. LABORATORY DATA: BUN to creatinine ratio is 39 to 1.07 and the carbon dioxide is 18 with chloride of 107. Albumin is 2.0. White blood cell count is 9.2 and hemoglobin is 13.8. The platelet count is 209. IMPRESSION: 1. Acute kidney injury. 2. Parkinson disease. 3. Stercoral colitis. 4. Metabolic acidosis. 5. Urinary tract infection with sepsis, present on admission. 6. Viral pneumonia and coronavirus disease-19 infection. [id number]
[2020-04-10] MEDS: NOREPINEPHRINE INJ 4MG/4ML 8 MG in DEXTROSE 5% 250ML 250 ML IV SCH (16:24)
[2020-04-10] MEDS: CEFTRIAXONE SOD 1 GM/NS 50 ML 50 ML IV SCH (16:25)
[2020-04-10] MEDS: OYST-CAL-D 500MG TABLET PO SCH (16:26)
[2020-04-10] MEDS: ENOXAPARIN SOD INJ 40 MG/0.4 ML SYR SC SCH (16:26)
--- NOTE | 2020-04-10 16:33 | NUR ---
Nutrition Screen Note RD Recommendation for Physician: -If PO intake is feasible, continue current diet as tolerated and provide Ensure nutrition supplement if meal intake is <50% -If PO intake is not feasible, consider enteral nutrition Plan of Care: RD following, monitoring for tolerance and adequacy Nutrition reason for involvement: Nutrition Risk Trigger (MST 3) Primary Diagnose(s): septic shock, UTI, COVID+ PMH: HTN, parksinson Ht: 60 inches Wt: 118 lbs BMI: 23.0 kg/m2 IBW: [address] Assessment: (04/10/20) Chart reviewed. Labs and meds reviewed. Pt is a 80 year old female admitted with septic shock and UTI. Pt is COVID+; therefore, unable to enter room due to droplet isolation precautions. PO intake is not recorded at this time. It is noted that pt is lethargic and nonverbal. Pt had an NG tube placed per chart. Prior nutrition history is limited. Will continue to monitor. Current Diet: cardiac Malnutrition Evaluation (04/10/20) Unable to assess. Will re-evaluate at follow-up as appropriate. Diet Education Needs Assessment: Diet education not indicated. Nutrition Care Level: low Signed: Crystal Pearce, RD, LD
--- NOTE | 2020-04-10 17:00 | NUR ---
sepsis gp bactermis colitis covid 19 uri
[2020-04-10] MEDS ORDERED: METRONIDAZOLE 500MG/NS 100ML 100 ML IV SCH (18:00)
[2020-04-10] MEDS ORDERED: VANCOMYCIN 250MG/5ML ORAL SOLN PO SCH (18:00)
--- NOTE | 2020-04-10 19:55 | Consultation ---
DATE OF CONSULTATION: 04/09/2020 REASON FOR CONSULTATION: Sepsis and septic shock. HISTORY OF PRESENT ILLNESS: Viji Tabor is a 80-year-old female history of Parkinson disease. The patient was seen on 04/09. She has history of Parkinson disease, gastrointestinal problem, hospitalization at [facility] in May, subsequently went to rehab at the [facility] and then [facility]. She was there for a few months getting physical therapy, but the last few days, getting progressively worse. She constipation. She came to the emergency room where she was found to have hypotensive. I did see her originally on March 10. The patient who has history of Parkinson disease, status post cholecystectomy, knee surgery, osteoarthritis. PAST SURGICAL HISTORY: As above. ALLERGIES: NKA. SOCIAL HISTORY: There is no smoking, drug abuse, or alcohol abuse. FAMILY HISTORY: Noncontributory. Today, I called her daughter and talked to her about her condition. The patient was seen on March 10 when I saw her, I was concerned about sepsis and septic shock. The patient was started on antibiotic. The patient was seen by Pulmonary. Today, her blood cultures coming with gram-positive cocci. Her CAT scan showed colitis. Her white count 9.22. The patient who had a positive COVID, but her chest x-ray does not reveal infiltrate, but the CAT scan showed she had colitis. She was on vasopressors. PHYSICAL EXAMINATION: GENERAL: Currently alert, oriented. VITAL SIGNS: Stable. Currently afebrile. HEENT: She is not icteric. NECK: Supple. CHEST: Clear. HEART: S1 and S2. ABDOMEN: Soft. IMPRESSION: 1. Sepsis with gram-positive bacteremia, source is unclear. Continue vancomycin. Obtain trough. 2. Sepsis with colitis. We will start empirically on Flagyl and oral vancomycin for Clostridium difficile colitis. 3. Discussed with the family. I do not think she is a candidate for steroid. I am really worried about the bacteremia and Clostridium difficile colitis. I do not see an infiltrate on the chest x-ray. I also would not recommend remdesivir because the patient does not have viral pneumonia at present time. I think we need to treat her underlying source of sepsis. Discussed with the family at length. MD ALMA ROSA Nava/NICKIE /[id number]
[2020-04-10] MEDS: METRONIDAZOLE 500MG/NS 100ML 100 ML IV SCH (20:30)
[2020-04-10] MEDS: VANCOMYCIN 250MG/5ML ORAL SOLN PO SCH (20:30)
[2020-04-10] MEDS ORDERED: FAMOTIDINE 20 MG TAB PO SCH (21:00)
[2020-04-11] VITALS (19 sets, daily range): BP systolic 97–195; BP diastolic 58–95
[2020-04-11] MEDS ORDERED: MAGNESIUM HYDROXIDE 30 ML UDC PO STA (00:35)
[2020-04-11] MEDS ORDERED: BISACODYL 10 MG SUPP PR STA (01:01)
[2020-04-11] MEDS: CARBIDOPA/LEVODOPA 25/100 TAB PO SCH ×9 (01:15→22:20)
[2020-04-11] MEDS: METRONIDAZOLE 500MG/NS 100ML 100 ML IV SCH ×4 (02:11→20:37)
[2020-04-11] MEDS: VANCOMYCIN 250MG/5ML ORAL SOLN PO SCH ×4 (05:47→18:49)
[2020-04-11 06:17] LABS: EOSINOPHILS % 0.4 % (0.0-6.0); HEMATOCRIT 32.8 % (34.2-44.1); HEMOGLOBIN 11.3 g/dL (12.0-16.0); LYMPHOCYTES # (AUTO) 0.6 (1.0-3.2); LYMPHOCYTES % 6.2 % (18.0-39.1); MEAN CORPUSCULAR HEMOGLOBIN 28.8 pg (28-32); MEAN CORPUSCULAR HGB CONC 34.5 g/dL (31-35); MEAN CORPUSCULAR VOLUME 83.5 fL (81-99); MONOCYTES # (AUTO) 0.2 (0.2-0.8); MONOCYTES % 2.5 % (4.4-11.3); NEUTROPHILS # (AUTO) 8.3 (2.1-6.9); NEUTROPHILS % 90.5 % (38.7-80.0); PLATELET COUNT 169 x10e3/uL (140-360); RED BLOOD COUNT 3.93 x10e6/uL (3.6-5.1); RED CELL DISTRIBUTION WIDTH 14.1 % (11.7-14.4)
[2020-04-11 06:55] LABS: ALBUMIN 2.2 g/dL (3.5-5.0); ALBUMIN/GLOBULIN RATIO 0.9 (0.8-2.0); ALKALINE PHOSPHATASE 41 IU/L (40-150); ANION GAP 18.8 mmol/L (8-16); BLOOD UREA NITROGEN 45 mg/dL (7-26); BUN/CREATININE RATIO 48 (6-25); CARBON DIOXIDE 23 mmol/L (22-29); CHLORIDE 98 mmol/L (98-107); CREATININE, SERUM 0.93 mg/dL (0.57-1.11); EST GLOMERULAR FILTRATION RATE 58 ML/MIN (60-); GLUCOSE 62 mg/dL (74-118); SODIUM 137 mmol/L (136-145)
[2020-04-11 06:57] LABS: POTASSIUM 2.8 mmol/L (3.5-5.1)
[2020-04-11 07:00] LABS: ALANINE AMINOTRANSFERASE < 6 IU/L (0-55); CALCIUM 6.7 mg/dL (8.4-10.2)
--- NOTE | 2020-04-11 07:09 | NUR ---
Message left with answering service for regarding critical lab values.
--- NOTE | 2020-04-11 07:14 | Diagnostic Imaging Report ---
EXAMINATION: CHEST SINGLE (PORTABLE) INDICATION: ^viral pneumonia ^[id number] ^0420 COMPARISON: 04/09/2020 FINDINGS: AP view TUBES and LINES: New nasogastric tube. LUNGS: Low lung volumes. Interval increased airspace disease at the left lung base. PLEURA: No pleural effusion or pneumothorax. HEART AND MEDIASTINUM: The cardiomediastinal silhouette is unchanged. BONES AND SOFT TISSUES: No acute osseous lesion. Soft tissues are unremarkable. UPPER ABDOMEN: No free air under the diaphragm. Unchanged prominent air-filled loops of bowel. IMPRESSION: Interval increased airspace disease of the left lung base may reflect atelectasis, aspiration, or developing infection. Signed by: Josemanuel Dominguez MD on 04/11/2020 7:11 AM
[2020-04-11] MEDS ORDERED: POTASSIUM CHLORIDE 20MEQ/100ML 200 ML IV ONE (08:30)
[2020-04-11] MEDS ORDERED: CALCIUM GLUCONATE 10% INJ 4.65 MEQ in SODIUM CHLORIDE 0.9% 50ML 50 ML IV ONE (08:30)
[2020-04-11] MEDS ORDERED: POTASSIUM CHLORIDE 20MEQ/15ML UDC NG ONE (08:30)
[2020-04-11] MEDS: NON-FORMULARY MEDICATION PO SCH ×2 (09:00→16:25)
[2020-04-11] MEDS ORDERED: ASCORBIC ACID 500 MG TAB NG SCH (09:00)
[2020-04-11] MEDS ORDERED: ASCORBIC ACID 500 MG TAB PO SCH (09:00)
[2020-04-11] MEDS: FAMOTIDINE 20 MG/2 ML VIAL IV SCH ×2 (09:01→17:33)
[2020-04-11] MEDS: PANTOPRAZOLE 40 MG 10ML VIAL IV SCH (09:01)
[2020-04-11] MEDS: ZINC SULFATE 220 MG CAP NG SCH (09:01)
[2020-04-11] MEDS: OYST-CAL-D 500MG TABLET PO SCH ×2 (09:02→17:33)
[2020-04-11] MEDS: SODIUM BICARBONATE 8.4% 150 ML in STERILE WATER IV SOLN 1,000 ML IV SCH (09:02)
[2020-04-11] MEDS: CYANOCOBALAMIN 1,000 MCG TAB PO SCH (09:02)
--- NOTE | 2020-04-11 09:19 | NUR ---
no acute neurological changes 58 97/61 98.2 lethargic, arousable, not following commands eomi perrl face symmetric increased tone in neck and limbs bradycardic crackles abd soft a/p parkinonsims- advanced, worsening due to physiological stress patient on combination sinemet, entacapone and amantadine at baseline hold amantadine due to risk of agitated hallucinations during acute illness once patient is able to safely take po medications can reintroduce dopaminergics and entacapone cannot use extended release formulation of medication without patient able to safely take po medications
[2020-04-11] MEDS: MAGNESIUM HYDROXIDE 30 ML UDC PO SCH (10:08)
[2020-04-11 10:19] LABS: ANION GAP 17.9 mmol/L (8-16); CREATININE, SERUM 0.95 mg/dL (0.57-1.11)
[2020-04-11] MEDS ORDERED: KLONOPIN0.5 MG PO (10:24)
[2020-04-11] MEDS ORDERED: ROPINIROLE HCL4 MG PO (10:24)
[2020-04-11 10:50] LABS: POTASSIUM 2.9 mmol/L (3.5-5.1)
[2020-04-11 10:51] LABS: CALCIUM 6.7 mg/dL (8.4-10.2)
[2020-04-11] MEDS ORDERED: CLONAZEPAM 0.5 MG TAB PO PRN (11:00)
--- NOTE | 2020-04-11 11:18 | Progress Note ---
DATE: 04/11/2020 Nephrology Followup Note SUBJECTIVE: The patient did not appear to be in any acute distress. In view of COVID-19 positive, physical examination was not done. Case was discussed with the nurse. I's and O's; 2260 in and 650 out. OBJECTIVE: VITAL SIGNS: Blood pressure was 132/81, respirations 22, and heart rate 56. LABORATORY DATA: White cell count 9.2, hemoglobin 11.3, hematocrit 32.8, and platelets 169. Sodium 137, potassium 2.8, chloride 98, CO2 23, BUN 45, creatinine 0.9, and calcium 6.7. IMPRESSION: 1. Hypokalemia and hypocalcemia. 2. Acute kidney injury, improved. Serum creatinine improved rate 0.9. PLAN: Replace potassium 40 mEq IV and 40 mEq p.o. Check labs in the morning along with magnesium and phosphorus. Calcium has already been increased. Further recommendations to follow. Peter Montes MD [facility]/NICKIE /[id number]
--- NOTE | 2020-04-11 11:23 | Progress Note ---
DATE: SUBJECTIVE: The patient was weaned off Levophed. She continues to receive intravenous fluid with bicarbonate. She was seen by Gastroenterology last night and started on a laxative regimen. She was seen again by Nephrology this morning. Her potassium was repleted and her IV fluids were continued. PHYSICAL EXAMINATION: VITAL SIGNS: The patient is afebrile. The blood pressure is 132/81, saturation is 99% on 3 L and the pulse is 56. HEENT: No facial swelling or erythema. CARDIAC: Regular rate and rhythm with normal S1, S2. LUNGS: Auscultation of lungs shows decreased breath sounds at the bases. There is no wheezing. ABDOMEN: Soft, nontender. There is no rebound or guarding. EXTREMITIES: No leg edema or calf tenderness. There is no cyanosis clubbing. SKIN: No rashes. NEUROLOGIC: Rigidity and increased tone consistent with Parkinson's. LABORATORY DATA: Potassium is 2.8. BUN to creatinine ratio is 45 to 0.93 and the albumin is 2.2. The white blood cell count is 9.2 and hemoglobin is 11.3. The platelet count is 169. RADIOGRAPHIC DATA: Chest x-ray shows airspace disease in the left lung. IMPRESSION: 1. Stercoral colitis. 2. Acute kidney injury. 3. Parkinson disease. 4. Viral pneumonia and coronavirus disease-19 infection. 5. Hypokalemia. 6. Metabolic acidosis. PLAN: 1. Continue IV fluids. 2. Continue bowel regimen as recommended by GI. 3. Continue current Parkinson's regimen. 4. Continue physical therapy. 5. Remove femoral line and place PICC line. 6. Continue current antibiotics. Vernon Tatum MD [facility]/MODL /[id number]
[2020-04-11] MEDS: VANCOMYCIN HCL 1.25 GM in SODIUM CHLORIDE 0.9% 250ML 250 ML IV SCH (12:40)
[2020-04-11] MEDS: NOREPINEPHRINE INJ 4MG/4ML 8 MG in DEXTROSE 5% 250ML 250 ML IV SCH (16:30)
[2020-04-11] MEDS: ASCORBIC ACID 500 MG TAB PO SCH (17:33)
[2020-04-11] MEDS: ENOXAPARIN SOD INJ 40 MG/0.4 ML SYR SC SCH (17:33)
--- NOTE | 2020-04-11 18:36 | NUR ---
PAGED DR. Dave FOSTER PERTAINING TO PATIENT'S ABDOMINAL DISTENTION S/T TUBE FEEDINGS. WAITING FOR CALL BACK
[2020-04-11] MEDS ORDERED: MINERAL OIL 132 ML BTL PR ONE (20:00)
[2020-04-11] MEDS: ROPINIROLE HCL 2 MG TAB PO SCH (20:37)
[2020-04-12] VITALS (15 sets, daily range): BP systolic 148–198; BP diastolic 74–111
--- NOTE | 2020-04-12 00:07 | Diagnostic Imaging Report ---
EXAM: Abdomen Radiograph 1 View(s) INDICATION: ^abd distention ^[id number] ^2340 ^Y COMPARISON: Abdominal radiograph 04/10/2020 FINDINGS: Interval increase in gaseous distention of several loops of small bowel within the right abdomen, notably a loop that measures 3.8 cm in dilatation. Persistent gaseous distention of the sigmoid colon and stomach. No distinct free intraperitoneal air. No abnormal soft tissue calcification. A nasogastric tube terminates within the stomach. Advanced lumbar spine degenerative change. IMPRESSION: Progressive gaseous dilatation of small bowel. The frontal considerations include ileus and developing obstruction. Continued follow-up is recommended. Signed by: Josemanuel Dominguez MD on 04/12/2020 12:03 AM
[2020-04-12] MEDS: VANCOMYCIN 250MG/5ML ORAL SOLN PO SCH ×5 (00:48→23:40)
[2020-04-12] MEDS: CARBIDOPA/LEVODOPA 25/100 TAB PO SCH ×4 (01:24→20:25)
[2020-04-12] MEDS: SODIUM BICARBONATE 8.4% 150 ML in STERILE WATER IV SOLN 1,000 ML IV SCH ×3 (01:27→23:40)
[2020-04-12] MEDS: METRONIDAZOLE 500MG/NS 100ML 100 ML IV SCH ×4 (01:27→20:07)
--- NOTE | 2020-04-12 01:35 | NUR ---
Page out to Dr. Dave Khan regarding KUB findings.
--- NOTE | 2020-04-12 05:53 | Diagnostic Imaging Report ---
EXAMINATION: CHEST SINGLE (PORTABLE) INDICATION: ^viral pneumonia COMPARISON: 04/11/2020 FINDINGS: AP view TUBES and LINES: Unchanged nasogastric tube. LUNGS: Unchanged bibasilar opacities, left greater than right. PLEURA: Possible small bilateral pleural effusions are unchanged. HEART AND MEDIASTINUM: The cardiomediastinal silhouette is unchanged. BONES AND SOFT TISSUES: No acute osseous lesion. Soft tissues are unremarkable. UPPER ABDOMEN: No free air under the diaphragm. Gaseous distention of the colon. IMPRESSION: No significant interval change. Signed by: Josemanuel Dominguez MD on 04/12/2020 5:50 AM
[2020-04-12 06:42] LABS: BASOPHILS % 0.5 % (0.0-1.0); EOSINOPHILS % 0.4 % (0.0-6.0); HEMATOCRIT 33.5 % (34.2-44.1); HEMOGLOBIN 11.4 g/dL (12.0-16.0); LYMPHOCYTES # (AUTO) 0.6 (1.0-3.2); LYMPHOCYTES % 7.9 % (18.0-39.1); MEAN CORPUSCULAR HEMOGLOBIN 28.2 pg (28-32); MEAN CORPUSCULAR VOLUME 82.9 fL (81-99); MONOCYTES # (AUTO) 0.3 (0.2-0.8); NEUTROPHILS # (AUTO) 6.9 (2.1-6.9); NEUTROPHILS % 85.8 % (38.7-80.0); PLATELET COUNT 141 x10e3/uL (140-360); RED BLOOD COUNT 4.04 x10e6/uL (3.6-5.1); RED CELL DISTRIBUTION WIDTH 14.5 % (11.7-14.4)
[2020-04-12 07:13] LABS: ALBUMIN/GLOBULIN RATIO 0.8 (0.8-2.0); ALKALINE PHOSPHATASE 48 IU/L (40-150); ANION GAP 11.9 mmol/L (8-16); BLOOD UREA NITROGEN 23 mg/dL (7-26); BUN/CREATININE RATIO 39 (6-25); CALCIUM 7.3 mg/dL (8.4-10.2); CARBON DIOXIDE 33 mmol/L (22-29); CHLORIDE 97 mmol/L (98-107); CREATININE, SERUM 0.59 mg/dL (0.57-1.11); EST GLOMERULAR FILTRATION RATE > 60 ML/MIN (60-); GLUCOSE 108 mg/dL (74-118); SODIUM 139 mmol/L (136-145)
[2020-04-12 07:22] LABS: ALANINE AMINOTRANSFERASE < 6 IU/L (0-55)
[2020-04-12 07:25] LABS: POTASSIUM 2.9 mmol/L (3.5-5.1)
[2020-04-12] MEDS: MAGNESIUM HYDROXIDE 30 ML UDC PO SCH (09:00)
[2020-04-12] MEDS ORDERED: MINERAL OIL 132 ML BTL PR ONE (09:00)
[2020-04-12] MEDS: NON-FORMULARY MEDICATION PO SCH ×2 (09:00→17:00)
[2020-04-12] MEDS: ZINC SULFATE 220 MG CAP NG SCH (09:00)
[2020-04-12] MEDS: CYANOCOBALAMIN 1,000 MCG TAB PO SCH (09:00)
[2020-04-12] MEDS: ASCORBIC ACID 500 MG TAB PO SCH ×2 (09:00→17:00)
[2020-04-12] MEDS: OYST-CAL-D 500MG TABLET PO SCH ×2 (09:00→17:00)
--- NOTE | 2020-04-12 09:40 | NUR ---
no acute neurological changes 58 97/61 98.2 lethargic, arousable, not following commands eomi perrl face symmetric increased tone in neck and limbs bradycardic crackles abd soft a/p parkinonsims- advanced, worsening due to physiological stress patient on combination sinemet, entacapone and amantadine at baseline hold amantadine due to risk of agitated hallucinations during acute illness once patient is able to safely take po medications can reintroduce dopaminergics and entacapone cannot use extended release formulation of medication without patient able to safely take po medications holding parkinsoninan meds as they can contribute to gi upset
--- NOTE | 2020-04-12 09:51 | Diagnostic Imaging Report ---
EXAMINATION: CT of the abdomen and pelvis without contrast. TECHNIQUE: Spiral CT images of the abdomen and pelvis were performed from the lung bases to the lesser trochanters. No intravenous contrast was given per physician's request. Coronal and sagittal reformatted images were obtained. COMPARISON: KUB 04/11/2020 CLINICAL HISTORY:Abdominal distention, possible perforation, septic shock DISCUSSION: ABSENCE OF INTRAVENOUS CONTRAST DECREASES SENSITIVITY FOR DETECTION OF FOCAL LESIONS AND VASCULAR PATHOLOGY. ABDOMEN/PELVIS: LINES AND TUBES: Enteric tube has distal tip at the stomach body. LOWER THORAX: Right lower lobe posteromedial consolidation with air bronchograms. Linear and patchy opacities in the left lower lobe. Marked atherosclerotic calcification of the coronary arteries and to a lesser degree thoracic aorta. Calcification of the mitral annulus. Mild cardiomegaly. HEPATOBILIARY: No focal hepatic lesions. No intra or extrahepatic biliary ductal dilation. GALLBLADDER: Cholecystectomy clips. SPLEEN: No splenomegaly. PANCREAS: No focal masses or ductal dilatation. ADRENALS: No adrenal nodules. KIDNEYS/URETERS: No hydronephrosis or stones. No contour abnormalities.. PELVIC ORGANS/BLADDER: Bladder is decompressed and there is a Vieira catheter in place. Small amount of free air in the nondependent portion of the bladder. PERITONEUM/RETROPERITONEUM: No pneumoperitoneum. No significant ascites. LYMPH NODES: No intra-abdominal,retroperitoneal, pelvic or inguinal lymphadenopathy. VESSELS: Moderate to marked atherosclerotic calcification of the abdominal aorta and proximal iliac vessels. GI TRACT: Dilation of the distal sigmoid and rectum, which measures 8.2 cm in transverse diameter (series 2, image 70), is filled with stool and shows mild circumferential wall thickening. Mild surrounding stranding is noted. There is gradual transition to normal caliber large bowel in the proximal sigmoid colon. Small bowel is not dilated. Stomach is unremarkable. BONES AND SOFT TISSUES: No aggressive lytic or suspicious focal sclerotic lesions. Marked generalized osteopenia. Markedly degenerated discs in the lower thoracic and lumbosacral spine, worse at L5-S1, L2-L3, with associated marked leftward curvature, with apex at L2-L3. Moderate generalized anasarca. IMPRESSION: 1. Exam limited by lack of intravenous contrast. 2. Findings in the distal sigmoid and rectum suggestive of stercoral colitis. Dilation of the distal sigmoid and rectum suggest impaction. 3. Right lower lobe consolidation with air bronchograms and opacities in the left lower lobe consistent with pneumonia. 4. Moderate generalized anasarca. Signed by: Dr. Luís Joseph M.D. on 04/12/2020 9:47 AM
[2020-04-12] MEDS: FAMOTIDINE 20 MG/2 ML VIAL IV SCH ×2 (10:33→17:49)
[2020-04-12] MEDS: PANTOPRAZOLE 40 MG 10ML VIAL IV SCH (10:33)
[2020-04-12] MEDS: VANCOMYCIN HCL 1.25 GM in SODIUM CHLORIDE 0.9% 250ML 250 ML IV SCH (12:00)
[2020-04-12] MEDS ORDERED: CITRATE OF MAGNESIA 300ML BOTTLE PO ONE (14:00)
[2020-04-12] MEDS: NOREPINEPHRINE INJ 4MG/4ML 8 MG in DEXTROSE 5% 250ML 250 ML IV SCH (16:30)
[2020-04-12] MEDS ORDERED: SOD PHOSPHATE/SOD BIPHOSPHATE ENEMA 132 ML BTL PR ONE (17:15)
[2020-04-12] MEDS: ENOXAPARIN SOD INJ 40 MG/0.4 ML SYR SC SCH (18:23)
--- NOTE | 2020-04-12 19:47 | Progress Note ---
DATE: Pulmonary Critical Care Progress Note. SUBJECTIVE: The patient is off Levophed. She is receiving her medicines for Parkinson disease. PHYSICAL EXAMINATION: VITAL SIGNS: Blood pressure is 158/87, pulse is 103, and saturation is 100% on 3 L nasal cannula. HEENT: Shows no facial swelling or erythema. CARDIAC: Reveals regular rate and rhythm with normal S1, S2. LUNGS: Auscultation of lungs reveals crackles at bases. There is no wheezing. ABDOMEN: Soft and nontender. There is no rebound or guarding. EXTREMITIES: Shows no leg edema or calf tenderness. There is no cyanosis or clubbing. SKIN: Shows no rashes. NEUROLOGICAL: Shows no focal abnormalities. LABORATORY DATA: White blood cell count is 8.08, hemoglobin is 11.4, platelet count is 141. Potassium is 2.9, and the BUN to creatinine ratio is 23 to 0.59. Other electrolytes are within normal limits. RADIOGRAPHIC DATA: CT scan of the abdomen and pelvis shows Stercoral colitis with impaction of stool in the distal sigmoid and rectum. There is some consolidation in the right lower lobe and left lower lobe as well. IMPRESSION: 1. Viral pneumonia and COVID-19 infection. 2. Parkinson disease. 3. Acute kidney injury. 4. Stercoral colitis. 5. Hypokalemia. 6. Metabolic acidosis. PLAN: 1. Continue IV fluids and replacement of potassium. 2. Remove femoral line and place PICC line. 3. Continue current Parkinson's regimen. 4. Continue antibiotics. 5. Continue physical therapy. Vernon Tatum MD [facility]/MODL /[id number]
[2020-04-12] MEDS: ROPINIROLE HCL 2 MG TAB PO SCH (20:25)
[2020-04-12] MEDS ORDERED: HYDRALAZINE HCL 20 MG/ML VIAL IV PRN (21:30)
--- NOTE | 2020-04-12 22:00 | NUR ---
Notified by [facility] that PICC team won't be able to be here until /6 during the morning time.
[2020-04-13] VITALS (20 sets, daily range): BP systolic 140–196; BP diastolic 75–114
[2020-04-13] MEDS: METRONIDAZOLE 500MG/NS 100ML 100 ML IV SCH ×4 (01:56→21:15)
[2020-04-13] MEDS ORDERED: MAGNESIUM HYDROXIDE 30 ML UDC PO ONE (03:00)
[2020-04-13] MEDS ORDERED: MINERAL OIL 132 ML BTL PR ONE (04:00)
[2020-04-13] MEDS: CARBIDOPA/LEVODOPA 25/100 TAB PO SCH ×3 (06:17→21:15)
[2020-04-13] MEDS: VANCOMYCIN 250MG/5ML ORAL SOLN PO SCH ×4 (06:17→21:59)
[2020-04-13 06:46] LABS: BASOPHILS % 0.4 % (0.0-1.0); HEMATOCRIT 38.7 % (34.2-44.1); LYMPHOCYTES % 13.7 % (18.0-39.1); MEAN CORPUSCULAR HEMOGLOBIN 28.3 pg (28-32); MEAN CORPUSCULAR HGB CONC 33.6 g/dL (31-35); MEAN CORPUSCULAR VOLUME 84.3 fL (81-99); MONOCYTES # (AUTO) 0.6 (0.2-0.8); MONOCYTES % 8.3 % (4.4-11.3); NEUTROPHILS # (AUTO) 5.4 (2.1-6.9); NEUTROPHILS % 75.4 % (38.7-80.0); PLATELET COUNT 147 x10e3/uL (140-360); RED BLOOD COUNT 4.59 x10e6/uL (3.6-5.1); RED CELL DISTRIBUTION WIDTH 14.6 % (11.7-14.4)
[2020-04-13 07:06] LABS: ALBUMIN/GLOBULIN RATIO 0.8 (0.8-2.0); ALKALINE PHOSPHATASE 51 IU/L (40-150); BLOOD UREA NITROGEN 13 mg/dL (7-26); BUN/CREATININE RATIO 28 (6-25); CALCIUM 7.2 mg/dL (8.4-10.2); CARBON DIOXIDE 36 mmol/L (22-29); CHLORIDE 93 mmol/L (98-107); CREATININE, SERUM 0.47 mg/dL (0.57-1.11); EST GLOMERULAR FILTRATION RATE > 60 ML/MIN (60-); GLUCOSE 85 mg/dL (74-118); SODIUM 139 mmol/L (136-145)
[2020-04-13 07:13] LABS: ALANINE AMINOTRANSFERASE < 6 IU/L (0-55)
--- NOTE | 2020-04-13 07:19 | NUR ---
no acute neurological changes 99.1 70 175/87 lethargic, arousable, not following commands but a wake eomi, interrupted saccades perrl face symmetric increased tone in neck and limbs rrr abd soft reflexes diminshied, increased tone in limbs a/p parkinonsims- advanced, worsening due to physiological stress patient on combination sinemet, entacapone and amantadine at baseline hold amantadine due to risk of agitated hallucinations during acute illness once patient is able to safely take po medications can reintroduce dopaminergics and entacapone reinitiating dopaminergics as patient can tolerate them, dopamine can worsen gastric side effects and may need to be held and titrated down temporarily as part of medical management of acute illness
[2020-04-13] MEDS ORDERED: POTASSIUM CHLORIDE 20MEQ/100ML 100 ML IV ONE (07:30)
[2020-04-13] MEDS ORDERED: POTASSIUM CHLORIDE 20MEQ/15ML UDC NG ONE ×2 (07:30→14:00)
[2020-04-13] MEDS: FAMOTIDINE 20 MG/2 ML VIAL IV SCH ×2 (08:12→17:15)
[2020-04-13] MEDS: ZINC SULFATE 220 MG CAP NG SCH (08:12)
[2020-04-13] MEDS: OYST-CAL-D 500MG TABLET PO SCH ×2 (08:12→17:18)
[2020-04-13] MEDS: PANTOPRAZOLE 40 MG 10ML VIAL IV SCH (08:12)
[2020-04-13] MEDS: ASCORBIC ACID 500 MG TAB PO SCH ×2 (08:12→17:16)
[2020-04-13] MEDS: MAGNESIUM HYDROXIDE 30 ML UDC PO SCH ×2 (08:15→17:15)
[2020-04-13] MEDS: NON-FORMULARY MEDICATION PO SCH ×2 (08:16→17:00)
[2020-04-13 08:32] LABS: LYMPHOCYTES % (MANUAL) 14 % (19-48); MONOCYTES % (MANUAL) 4 % (3.4-9.0); NEUTROPHILS % (MANUAL) 80 % (40-74); PLATELET ESTIMATE ADEQUATE; PLATELET MORPHOLOGY COMMENT NORMAL; RBC MORPHOLOGY COMMENT NORMAL
--- NOTE | 2020-04-13 10:06 | NUR ---
pt covid ppe used pt has renal on case no approval had to call renal dr. baltazar approved. pt has left arm swelling went right upper extremity after timeout with nurse kassy unable to advance rue pt svc some sort of obstruction. nurse kassy informed md pt will need central line hand off to nurse elena
[2020-04-13] MEDS: SODIUM BICARBONATE 8.4% 150 ML in STERILE WATER IV SOLN 1,000 ML IV SCH (10:08)
--- NOTE | 2020-04-13 10:26 | Progress Note ---
DATE: SUBJECTIVE: The patient is weaned off Levophed. Her blood pressure is now high, 170/90. She is more awake. PHYSICAL EXAMINATION: VITAL SIGNS: The blood pressure is 171/90, saturation is 97% on 3 L and the pulse is 84. HEENT: Shows no facial swelling or erythema. CARDIAC: Reveals regular rate and rhythm with normal S1 and S2. LUNGS: Auscultation of lungs reveals rhonchorous breath sounds bilaterally. There is no wheezing. ABDOMEN: Soft, nontender. There is no rebound or guarding. EXTREMITIES: Shows no leg edema or calf tenderness. The patient has increased rigidity and increased tone suggestive of Parkinson disease. LABORATORY DATA: White blood cell count is 7.2 and hemoglobin is 13. The platelet count is 147. The BUN to creatinine ratio is 13 to 0.47, and the potassium is 2. Albumin is 2.0. IMPRESSION: 1. Viral pneumonia and coronavirus disease-2019 infection. 2. Hypokalemia. 3. Acute kidney injury. 4. Severe constipation. 5. Parkinson disease. PLAN: 1. Replete potassium. 2. Continue to give IV fluids and correct renal insufficiency. 3. Complete antibiotics. 4. Continue current regimen for Parkinson disease. Vernon Tatum MD [facility]/MODL /[id number]
[2020-04-13] MEDS: CYANOCOBALAMIN 1,000 MCG TAB PO SCH (10:34)
[2020-04-13] MEDS: LISINOPRIL 20 MG TAB PO SCH (10:37)
[2020-04-13] MEDS: AMLODIPINE BESYLATE 10 MG TAB PO SCH (10:37)
[2020-04-13] MEDS: ATORVASTATIN 10 MG TAB PO SCH (10:38)
--- NOTE | 2020-04-13 10:56 | Progress Note ---
DATE: 04/13/2020 SUBJECTIVE: Ms. Tabor is a 80-year-old female with history of hypertension, Parkinson disease, recurring constipation, came to the emergency room with shortness of breath and changes in mental status. She was found to have a urinary tract infection and COVID pneumonia. She was admitted to ICU. At present time, she is off Levophed and she is on nasal cannula. She is more awake and alert. OBJECTIVE: VITAL SIGNS: Temperature is 98.1, blood pressure 171/90. The heart rate is 84 per minute, respiratory rate is 20. LABORATORY DATA: On the blood work; white count 7.21, hemoglobin 13, hematocrit 38.7, potassium of 2.0, creatinine 0.47. COVID test came back negative. Blood cultures are showing Staph coagulase negative. IMAGING: Chest x-ray done yesterday showed no changes. Abdominal and pelvic CT showed distal sigmoid and rectum suggestive of stercoral colitis with , right lower lobe consolidations. ASSESSMENT: 1. Viral pneumonia secondary to coronavirus disease infection. 2. Parkinson disease. 3. Acute kidney failure. 4. Stercoral colitis. 5. Hypokalemia. 6. Metabolic acidosis. PLAN: At present time is to continue to monitor respiratory status. Continue IV antibiotics and IV fluids. Replace potassium. Continue PT, OT. The overall prognosis of the patient remains guarded. MD [facility]/MODL /[id number]
--- NOTE | 2020-04-13 11:00 | Progress Note ---
DATE: 04/13/2020 SUBJECTIVE: The patient in COVID isolation. Has an NG tube in. Currently receiving IV fluid, nonoliguric. Urine appears a little bit dark, but definitely much improved from before. Kidney function as blood test shows significant improvement. She is in no respiratory distress. Unable to get review of systems due to medical condition. She partially follows commands. OBJECTIVE: VITAL SIGNS: Blood pressure is 110/60, pulse rate 77, and afebrile. HEAD AND NECK: Unchanged. NG tube noted. LUNGS: Harsh vesicular breath sounds, relatively clear. HEART: S1 and S2 audible. ABDOMEN: Soft and nontender. EXTREMITIES: Lower extremity, no edema. LABORATORY DATA: Show sodium 139, potassium 2, bicarbonate 36, creatinine 0.4, and calcium 7.2. IMPRESSION AND PLAN: Profound hypokalemia, acute kidney injury resolved, now hypokalemic and serum creatinine improved. I will discontinue existing IV fluid. Last magnesium was 2.2. We will replace potassium as well as magnesium. Please see orders. MD CARLTON Rodarte/NICKIE /[id number]
[2020-04-13] MEDS: DEXTROSE 5%/0.45% SOD CHL 1,000 ML IV SCH (11:13)
[2020-04-13] MEDS ORDERED: MAGNESIUM SULFATE 2GM/50ML 50 ML IV ONE (11:20)
[2020-04-13] MEDS ORDERED: LIDOCAINE HCL 2% LOCAL 20 ML VIAL ONE (11:35)
[2020-04-13] MEDS ORDERED: LABETALOL HCL 5 MG/ML 20ML VIAL IV STA (12:24)
--- NOTE | 2020-04-13 13:13 | Diagnostic Imaging Report ---
EXAMINATION: CHEST SINGLE (PORTABLE) INDICATION: ^CENTRAL LINE ^[id number] ^1245 COMPARISON: Chest radiograph 04/12/[address] abdomen pelvis 04/12/2020 FINDINGS: AP view TUBES and LINES: Interval placement of a right central venous catheter with tip overlying the superior right atrium. Unchanged infradiaphragmatic NG/OG tube. LUNGS: Lungs are well inflated. Improved right lower lobe consolidation. Stable small left lower lobe consolidation. No pulmonary edema. PLEURA: Trace bilateral pleural effusion, unchanged. No pneumothorax. HEART AND MEDIASTINUM: Stable mildly prominent cardiac silhouette. Markedly tortuous thoracic aorta. BONES AND SOFT TISSUES: No acute osseous lesion. Soft tissues are unremarkable. UPPER ABDOMEN: No free air under the diaphragm. Right upper quadrant cholecystectomy clips. IMPRESSION: Interval placement of a right IJ central venous catheter with tip overlying the superior right atrium. No pneumothorax. Bibasilar consolidations, improved on the right and unchanged on the left. Stable trace bilateral pleural effusions. Signed by: Dr. Mary Kate Blank M.D. on 04/13/2020 1:10 PM
[2020-04-13] MEDS: VANCOMYCIN HCL 1.25 GM in SODIUM CHLORIDE 0.9% 250ML 250 ML IV SCH (13:35)
--- NOTE | 2020-04-13 14:21 | Operative Report ---
DATE OF PROCEDURE: SURGEON: Vernon Tatum MD PROCEDURE: Central line placement under ultrasound guidance. PREOPERATIVE DIAGNOSIS: Parkinson disease. POSTOPERATIVE DIAGNOSIS: Parkinson disease. CONSENT: Consent was obtained from the daughter. ANESTHESIA: 1% lidocaine for local anesthesia. PROCEDURE IN DETAIL: The patient was placed in supine position. The right neck was prepped sterilely with chlorhexidine. A full length sterile drape, sterile gown, and sterile gloves and mask were used. 1% lidocaine was used to anesthetize the skin. The right internal jugular vein was located with ultrasound. It was punctured with a 16-gauge needle under direct visualization. A wire was passed through the needle. The skin was dilated with the dilator. A triple-lumen catheter was placed over the wire by the Seldinger technique. All the ports flushed. COMPLICATIONS: None. ESTIMATED BLOOD LOSS: None. Vernon Tatum MD [facility]/MODL /[id number]
[2020-04-13] MEDS ORDERED: NON-FORMULARY MEDICATION (Carvedilol (Coreg) 12.5 MG) PO SCH (17:00)
[2020-04-13] MEDS: ENOXAPARIN SOD INJ 40 MG/0.4 ML SYR SC SCH (17:18)
[2020-04-13] MEDS: CARVEDILOL 12.5 MG TAB PO SCH (17:18)
--- NOTE | 2020-04-13 18:28 | NUR ---
Dr. Gonzales and Dr. Savannah tatum gave orders for picc line. PICC RN unable to insert picc line. Dr. Savannah Tatum informed and gave orders for central line placement. Telephone consent obtained with Brianda MCGUIRE from POA/daughter due to altered mental status. Dr. Savannah Tatum placed RIJ. Chest x ray done and Dr. Savannah Tatum read results. Orders given to use new central line and remove femoral line.
[2020-04-13] MEDS: ROPINIROLE HCL 2 MG TAB PO SCH (21:15)
[2020-04-14] VITALS (7 sets, daily range): BP systolic 126–174; BP diastolic 83–94
--- NOTE | 2020-04-14 00:53 | NUR ---
dr chung here to see pt. New orders received to get KUB stat and place n/g to lis.
[2020-04-14] MEDS: METRONIDAZOLE 500MG/NS 100ML 100 ML IV SCH ×4 (02:15→22:46)
[2020-04-14] MEDS: CARBIDOPA/LEVODOPA 25/100 TAB PO SCH ×3 (05:05→22:47)
[2020-04-14] MEDS: VANCOMYCIN 250MG/5ML ORAL SOLN PO SCH ×3 (05:05→18:15)
[2020-04-14 06:01] LABS: BASOPHILS # (AUTO) 0.1 (0.0-0.1); EOSINOPHILS % 0.2 % (0.0-6.0); HEMATOCRIT 38.3 % (34.2-44.1); HEMOGLOBIN 12.7 g/dL (12.0-16.0); LYMPHOCYTES # (AUTO) 0.9 (1.0-3.2); LYMPHOCYTES % 14.8 % (18.0-39.1); MEAN CORPUSCULAR HEMOGLOBIN 29.1 pg (28-32); MEAN CORPUSCULAR HGB CONC 33.2 g/dL (31-35); MEAN CORPUSCULAR VOLUME 87.6 fL (81-99); MONOCYTES # (AUTO) 0.5 (0.2-0.8); MONOCYTES % 7.9 % (4.4-11.3); NEUTROPHILS # (AUTO) 4.1 (2.1-6.9); NEUTROPHILS % 64.5 % (38.7-80.0); PLATELET COUNT 150 x10e3/uL (140-360); RED BLOOD COUNT 4.37 x10e6/uL (3.6-5.1); RED CELL DISTRIBUTION WIDTH 14.4 % (11.7-14.4)
--- NOTE | 2020-04-14 06:15 | NUR ---
lab called with k of 2.2. Dr Gonzales notified of K and new orders received.Magnesium and K ordered from blood already drswwillima. Instructed to given 40 meq of kcl over 4 hours . k to be drawn [address] woods results called to him. Endorsed to day rn.
[2020-04-14 06:22] LABS: ALANINE AMINOTRANSFERASE 6 IU/L (0-55); ALBUMIN 1.9 g/dL (3.5-5.0); ALBUMIN/GLOBULIN RATIO 0.8 (0.8-2.0); ALKALINE PHOSPHATASE 49 IU/L (40-150); ANION GAP 10.2 mmol/L (8-16); BLOOD UREA NITROGEN 9 mg/dL (7-26); BUN/CREATININE RATIO 20 (6-25); CALCIUM 7.1 mg/dL (8.4-10.2); CARBON DIOXIDE 36 mmol/L (22-29); CHLORIDE 95 mmol/L (98-107); CREATININE, SERUM 0.44 mg/dL (0.57-1.11); EST GLOMERULAR FILTRATION RATE > 60 ML/MIN (60-); GLUCOSE 134 mg/dL (74-118); SODIUM 139 mmol/L (136-145)
[2020-04-14 06:24] LABS: POTASSIUM 2.2 mmol/L (3.5-5.1)
[2020-04-14 07:11] LABS: MAGNESIUM 2.1 MG/DL (1.3-2.1); PHOSPHORUS 0.7 MG/DL (2.3-4.7)
--- NOTE | 2020-04-14 07:58 | NUR ---
PATIENT IN BED WITH HEAD OF BED ELEVATED, NG TUBE TO LOW SUCTION. BYRNE CATHETER IN PLACE WITH YELLOW URINE. HEEL PROTECTORS IN PLACE. BED IN LOWER POSITION, CALL LIGHT AT REACH.
--- NOTE | 2020-04-14 08:16 | Diagnostic Imaging Report ---
Exam: KUB - 2 views Indication: Abdominal distention Comparison: CT abdomen and pelvis of 04/12/2020 Findings: Gaseous distention of the colon. No free air. Status post cholecystectomy. Levoconvex curvature of the lumbar spine with prominent degenerative changes. Impression: Gaseous distention of the colon without definite evidence of bowel obstruction. No free air. Signed by: Shahbaz Solis MD on 04/14/2020 8:12 AM
--- NOTE | 2020-04-14 08:17 | Diagnostic Imaging Report ---
EXAMINATION: CHEST SINGLE (PORTABLE) INDICATION: Respiratory failure COMPARISON: Chest radiograph of 04/13/2020 FINDINGS: LINES/TUBES:Right IJ central venous catheter unchanged. Enteric tube with tip and side-port in the stomach. EKG leads overlie the chest. LUNGS:The lungs are moderately inflated. Mild bibasilar patchy opacities. PLEURA:No pleural effusion or pneumothorax. MEDIASTINUM:The cardiomediastinal silhouette appears unchanged in size and shape. BONES/SOFT TISSUES:No acute osseous injury. ABDOMEN:No free air under the diaphragm. IMPRESSION: Mild bibasilar patchy opacities, most likely subsegmental atelectasis. Signed by: Shahbaz Solis MD on 04/14/2020 8:14 AM
[2020-04-14] MEDS ORDERED: AMLODIPINE PO SCH (09:00)
[2020-04-14] MEDS ORDERED: ATORVASTATIN PO SCH (09:00)
[2020-04-14] MEDS: NON-FORMULARY MEDICATION PO SCH ×2 (09:00→17:00)
[2020-04-14] MEDS: DEXTROSE 5%/0.45% SOD CHL 1,000 ML IV SCH (09:55)
[2020-04-14] MEDS: POTASSIUM CHLORIDE 10MEQ/100ML 100 ML IV SCH ×4 (09:55→12:43)
[2020-04-14] MEDS: ZINC SULFATE 220 MG CAP NG SCH (10:04)
[2020-04-14] MEDS: FAMOTIDINE 20 MG/2 ML VIAL IV SCH ×2 (10:04→17:28)
[2020-04-14] MEDS: PANTOPRAZOLE 40 MG 10ML VIAL IV SCH (10:04)
[2020-04-14] MEDS: OYST-CAL-D 500MG TABLET PO SCH ×2 (10:05→17:28)
[2020-04-14] MEDS: LISINOPRIL 20 MG TAB PO SCH (10:05)
[2020-04-14] MEDS: ASCORBIC ACID 500 MG TAB PO SCH ×2 (10:05→17:28)
[2020-04-14] MEDS: ATORVASTATIN 10 MG TAB PO SCH (10:05)
[2020-04-14] MEDS: AMLODIPINE BESYLATE 10 MG TAB PO SCH (10:05)
[2020-04-14] MEDS: CYANOCOBALAMIN 1,000 MCG TAB PO SCH (10:05)
[2020-04-14] MEDS: CARVEDILOL 12.5 MG TAB PO SCH ×2 (10:05→17:28)
--- NOTE | 2020-04-14 10:06 | Progress Note ---
DATE: 04/14/2020 SUBJECTIVE: Ms. Tabor is a 80-year-old female with history of hypertension, Parkinson disease, recurrent constipation, came to the emergency room with shortness of breath and changes in mental status. She was found to have a urinary tract infection and COVID pneumonia. She was transferred to ICU. She is off the vasopressors right now. She is on IV antibiotics. OBJECTIVE: VITAL SIGNS: Temperature is 98.5, blood pressure 164/92, pulse is 59, respiratory rate is 16. LABORATORY DATA: On the blood work; white count 6.29, hemoglobin 12.7, hematocrit 38.3. Potassium came back 2.2 and creatinine is 0.44. COVID came back positive. Blood cultures are growing Staph epidermidis. Chest x-ray is showing mild bibasilar patchy opacities. ASSESSMENT: 1. Viral pneumonia secondary to Coronavirus. 2. Parkinson disease. 3. Acute kidney failure. 4. Stercoral colitis. 5. Hypokalemia. 6. Metabolic acidosis. PLAN: At present time is to continue IV antibiotics, IV fluids, replace potassium. PT, OT, and continue to monitor electrolytes. Continue Parkinson's medications. The patient had a central line placed yesterday and the overall prognosis of the patient remains guarded. MD BAL Castro/MODL /[id number]
[2020-04-14 10:32] LABS: BAND NEUTROPHILS % (MANUAL) 2 %; LYMPHOCYTES % (MANUAL) 12 % (19-48); MONOCYTES % (MANUAL) 3 % (3.4-9.0); NEUTROPHILS % (MANUAL) 73 % (40-74)
--- NOTE | 2020-04-14 11:16 | Progress Note ---
DATE: Pulmonary Critical Care Progress Note SUBJECTIVE: The patient is off Levophed. She was transferred out of ICU yesterday. PHYSICAL EXAMINATION: VITAL SIGNS: Blood pressure is 169/92, pulse is 59. HEENT: No facial swelling or erythema. CARDIAC: Regular rate and rhythm with normal S1, S2. LUNGS: Auscultation of lungs reveals crackles at the bases. There is no wheezing. ABDOMEN: Soft, nontender. There is no rebound or guarding. EXTREMITIES: No leg edema or calf tenderness. There is no cyanosis or clubbing. SKIN: No rashes. NEUROLOGICAL: No focal abnormalities. LABORATORY DATA: White blood cell count is 6.3 and hemoglobin is 12.7. Platelet count is 150. Potassium is 2.2, BUN to creatinine ratio is 9 to 0.44. Other electrolytes are within normal limits. Albumin is 1.9. RADIOGRAPHIC DATA: Chest x-ray shows mild basilar infiltrates. IMPRESSION: 1. Viral pneumonia and coronavirus disease-19 infection. 2. Hypokalemia. 3. Parkinson disease. 4. Acute kidney injury. 5. Colitis. PLAN: 1. Replace potassium. 2. Continue gentle hydration. 3. Continue current Parkinson's regimen. 4. Continue current antibiotics. 5. Continue Lovenox. Vernon Tatum MD [facility]/MODL /[id number]
--- NOTE | 2020-04-14 11:57 | NUR ---
VENOUS DUPLEX IN PROGRESS AT BED SIDE. PATIENT IN BED WITH HEAD OF BED ELEVATED. CALL LIGHT AT REACH.
[2020-04-14] MEDS: VANCOMYCIN HCL 1.25 GM in SODIUM CHLORIDE 0.9% 250ML 250 ML IV SCH (12:00)
[2020-04-14] MEDS ORDERED: POTASSIUM CHLORIDE 20MEQ/15ML UDC NG ONE (12:00)
--- NOTE | 2020-04-14 12:32 | NUR ---
BED SIDE VENOUS DUPLEX COMPLETED AT THIS TIME. PATIENT REPOSITIONED IN BED, CALL LIGHT AT REACH.
--- NOTE | 2020-04-14 16:14 | NUR ---
MD IN TO SEE PATIENT, NEW ORDER RECEIVED.
[2020-04-14] MEDS: D5.45%NS/KCL 20MEQ 1,000 ML IV SCH (16:30)
[2020-04-14] MEDS: ENOXAPARIN SOD INJ 40 MG/0.4 ML SYR SC SCH (17:28)
--- NOTE | 2020-04-14 18:48 | NUR ---
SPOKE WITH DR RAO REGARDING ABNORMAL LAB RESULT, NEW ORDER RECEIVED.
[2020-04-14] MEDS ORDERED: POTASSIUM CHLORIDE 10MEQ/100ML 100 ML IV ONE (20:00)
[2020-04-14] MEDS ORDERED: POTASSIUM CHLORIDE 20MEQ/15ML UDC NG NR ×2 (21:00→23:00)
[2020-04-14] MEDS: ROPINIROLE HCL 2 MG TAB PO SCH (22:46)
[2020-04-15] VITALS (8 sets, daily range): BP systolic 120–153; BP diastolic 72–88
[2020-04-15] MEDS: VANCOMYCIN 250MG/5ML ORAL SOLN PO SCH ×5 (00:34→17:21)
--- NOTE | 2020-04-15 01:10 | NUR ---
SPOKE TO MD FOSTER. NEW ORDERS RECEIVED.
[2020-04-15] MEDS ORDERED: SOD PHOSPHATE/SOD BIPHOSPHATE ENEMA 132 ML BTL PR ONE (01:30)
--- NOTE | 2020-04-15 01:50 | NUR ---
PROVIDED BYRNE CARE VIA CASTILE SOAP WIPES. DAILY CHG BATH GIVEN. CENTRAL LINE CARE PROVIDED.
[2020-04-15] MEDS: METRONIDAZOLE 500MG/NS 100ML 100 ML IV SCH ×2 (03:03→10:05)
[2020-04-15] MEDS: CARBIDOPA/LEVODOPA 25/100 TAB PO SCH ×3 (07:25→17:21)
--- NOTE | 2020-04-15 07:39 | NUR ---
infectious disease progress note Patient is seen and examined chart reviewed events noted Medication list reviewed discussed with the medical team he patient is off Levophed. She was transferred out of ICU yesterday. PHYSICAL EXAMINATION: VITAL SIGNS: Blood pressure is 169/92, pulse is 59. HEENT: No facial swelling or erythema. CARDIAC: Regular rate and rhythm with normal S1, S2. LUNGS: Auscultation of lungs reveals crackles at the bases. There is no wheezing. ABDOMEN: Soft, nontender. There is no rebound or guarding. EXTREMITIES: No leg edema or calf tenderness. There is no cyanosis or clubbing. SKIN: No rashes. NEUROLOGICAL: No focal abnormalities. LABORATORY DATA: White blood cell count is 6.3 and hemoglobin is 12.7. Platelet count is 150. Potassium is 2.2, BUN to creatinine ratio is 9 to 0.44. Other electrolytes are within normal limits. Albumin is 1.9. RADIOGRAPHIC DATA: Chest x-ray shows mild basilar infiltrates. IMPRESSION: 1. Viral pneumonia and coronavirus disease-19 infection. 2. Hypokalemia. 3. Parkinson disease. 4. Acute kidney injury. 5. Colitis. 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
--- NOTE | 2020-04-15 07:59 | NUR ---
pt out of icu 98.8 145/86 84 EENT: No facial swelling or erythema. CARDIAC: Regular rate and rhythm with normal S1, S2. LUNGS: Auscultation of lungs reveals crackles at the bases. There is no wheezing. ABDOMEN: Soft, nontender. There is no rebound or guarding. EXTREMITIES: No leg edema or calf tenderness. There is no cyanosis or clubbing. SKIN: No rashes. NEUROLOGICAL: No focal abnormalities. increased tone slow responsiveness mild tremors noted reflexes diminished a/p parkinsons disease continue dopaminergicsn and monitor for response or side effects
--- NOTE | 2020-04-15 08:10 | NUR ---
REPORT GIVEN TO DAYSHIFT NURSE. ALERT. RESTING IN BED. NO SIGNS IV INFILTRATION. BED LOCKED AND IN LOW POSITION. CALL LIGHT WITHIN REACH. BED ALARM ACTIVATED.
[2020-04-15] MEDS: NON-FORMULARY MEDICATION PO SCH ×2 (09:00→17:00)
[2020-04-15] MEDS: AMANTADINE HCL 100 MG CAP PO SCH ×2 (09:00→17:21)
[2020-04-15] MEDS: FAMOTIDINE 20 MG/2 ML VIAL IV SCH ×2 (10:05→17:20)
[2020-04-15] MEDS: D5.45%NS/KCL 20MEQ 1,000 ML IV SCH (10:05)
[2020-04-15] MEDS: ZINC SULFATE 220 MG CAP NG SCH (10:05)
[2020-04-15] MEDS: PANTOPRAZOLE 40 MG 10ML VIAL IV SCH (10:05)
[2020-04-15] MEDS: ASCORBIC ACID 500 MG TAB PO SCH ×2 (10:06→17:21)
[2020-04-15] MEDS: ATORVASTATIN 10 MG TAB PO SCH (10:06)
[2020-04-15] MEDS: AMLODIPINE BESYLATE 10 MG TAB PO SCH (10:06)
[2020-04-15] MEDS: LISINOPRIL 20 MG TAB PO SCH (10:06)
[2020-04-15] MEDS: OYST-CAL-D 500MG TABLET PO SCH ×2 (10:06→17:21)
[2020-04-15] MEDS: CYANOCOBALAMIN 1,000 MCG TAB PO SCH (10:06)
[2020-04-15] MEDS: CARVEDILOL 12.5 MG TAB PO SCH ×2 (10:06→17:21)
--- NOTE | 2020-04-15 10:10 | Progress Note ---
DATE: 04/15/2020 SUBJECTIVE: Ms. Tabor is a 80-year-old female with hypertension, Parkinson disease, and constipation, came to the emergency room with shortness of breath and changes in mental status. Ruled in for COVID with pneumonia. She also had a urinary tract infection, was in ICU for several days, transferred to the COVID unit now. OBJECTIVE: VITAL SIGNS: Temperature is 98.3, blood pressure is 128/72, respiratory rate 21, and pulse is 94. LABORATORY DATA: On the blood work, white count 6.29, hemoglobin 12.7, and hematocrit 38.3. Potassium 2.9. We are going to replace it. The COVID test came back negative. Blood culture showing Staphylococcus coagulase negative and Staphylococcus epidermidis. Chest x-ray done on the 7th yesterday showed mild bibasilar patchy opacities, most likely atelectasis. ASSESSMENT: 1. Viral pneumonia secondary to coronavirus disease infection. 2. Sepsis secondary to coronavirus disease and to urinary tract infection. 3. Hypokalemia. 4. Parkinson disease. 5. Stercoral colitis. 6. Metabolic acidosis. PLAN: At the present time is to continue IV fluids, replace potassium, IV antibiotics, PT, OT, and continue Parkinson medications. MD BAL Castro/MODL /[id number]
--- NOTE | 2020-04-15 12:36 | Progress Note ---
DATE: SUBJECTIVE: The patient is more awake. She is now on room air. She is receiving supplemental potassium and IV fluids. PHYSICAL EXAMINATION: VITAL SIGNS: The patient is afebrile. The vital signs are stable. The blood pressure is 128/72. HEENT: Shows no facial swelling or erythema. CARDIAC: Reveals regular rate and rhythm with normal S1 and S2. LUNGS: Auscultation of lungs reveals decreased breath sounds at the bases. There is no wheezing. ABDOMEN: Soft and nontender. There is no rebound or guarding. EXTREMITIES: Shows no leg edema or calf tenderness. IMPRESSION: 1. Hypokalemia. 2. Viral pneumonia and COVID-19 infection. 3. Parkinson disease. 4. Acute kidney injury. 5. Colitis. PLAN: 1. Continue to replace potassium. 2. Gentle hydration. 3. Continue current regimen for Parkinson disease. 4. Continue Lovenox. 5. Complete antibiotics. 6. Physical therapy. Vernon Tatum MD [facility] /[id number]
[2020-04-15] MEDS ORDERED: NEOMYCIN/POLYMYX/GRAM (OPTH) 10 ML BTL OP SCH (15:00)
[2020-04-15] MEDS: ARTIFICIAL TEARS (OPTH) 15 ML BTL OU SCH (17:20)
[2020-04-15] MEDS: ENOXAPARIN SOD INJ 40 MG/0.4 ML SYR SC SCH (17:21)
[2020-04-15] MEDS ORDERED: POTASSIUM PHOSPHATE 20 MM in SODIUM CHLORIDE 0.9% 250ML 250 ML IV ONE (18:00)
--- NOTE | 2020-04-15 18:31 | NUR ---
Patient's daughter talked to Dr. Toro for [address] Toro told patient's family to bring inhalation carbidopa/levidopa. It was brought, patient was unable to use it. Patient's family was called and informed. In the box they also brought patient's apple watch, which was left in the box because patient is very lethargic. Patient new medication for Parkinson is not able to be crushed, pharmacy was called. Pharmacy ordered the liquid version, which will arrive tomorrow. Patient left eye also has a blister like coming from under the eyelid, and this magazine writer assessed it together and he ordered eye drops BID.
[2020-04-15] MEDS: ROPINIROLE HCL 2 MG TAB PO SCH (21:36)
[2020-04-16] VITALS (8 sets, daily range): BP systolic 106–156; BP diastolic 69–98
--- NOTE | 2020-04-16 00:10 | NUR ---
Vieira care given.repositioned.ng tube is in place.iv fluid running.Dr.M Khan is into see the patient.stable condition.
[2020-04-16] MEDS: D5.45%NS/KCL 20MEQ 1,000 ML IV SCH ×3 (00:15→22:00)
[2020-04-16] MEDS: CARBIDOPA/LEVODOPA 25/100 TAB PO SCH ×4 (00:15→21:21)
[2020-04-16] MEDS: VANCOMYCIN 250MG/5ML ORAL SOLN PO SCH ×4 (00:15→17:15)
--- NOTE | 2020-04-16 06:00 | NUR ---
had a small amount of bowel movement.repositioned.
[2020-04-16 06:42] LABS: ALANINE AMINOTRANSFERASE < 6 IU/L (0-55); ALBUMIN 1.8 g/dL (3.5-5.0); ALBUMIN/GLOBULIN RATIO 0.8 (0.8-2.0); ALKALINE PHOSPHATASE 51 IU/L (40-150); ANION GAP 8.9 mmol/L (8-16); BLOOD UREA NITROGEN 9 mg/dL (7-26); BUN/CREATININE RATIO 20 (6-25); CARBON DIOXIDE 31 mmol/L (22-29); CHLORIDE 98 mmol/L (98-107); CREATININE, SERUM 0.44 mg/dL (0.57-1.11); EST GLOMERULAR FILTRATION RATE > 60 ML/MIN (60-); GLUCOSE 66 mg/dL (74-118); SODIUM 135 mmol/L (136-145)
[2020-04-16 06:58] LABS: CALCIUM 6.9 mg/dL (8.4-10.2)
[2020-04-16 06:59] LABS: POTASSIUM 2.9 mmol/L (3.5-5.1)
--- NOTE | 2020-04-16 07:05 | NUR ---
BED SIDE SHIFT REPORT GIVEN TO ONCOMING RN.STABLE CONDITION.
[2020-04-16 07:16] LABS: MAGNESIUM 1.5 MG/DL (1.3-2.1); PHOSPHORUS 2.4 MG/DL (2.3-4.7)
--- NOTE | 2020-04-16 07:54 | NUR ---
PARKINSONIAN NON ONFOCAL 85 97.9 133/74 Patient awake, bradykinetic eom paresis CARDIAC: Regular rate and rhythm with normal S1, S2. LUNGS: Auscultation of lungs reveals crackles at the bases. There is no wheezing. ABDOMEN: Soft, nontender. There is no rebound or guarding. EXTREMITIES: No leg edema or calf tenderness. There is no cyanosis or clubbing. SKIN: No rashes. NEUROLOGICAL: No focal abnormalities. increased tone slow responsiveness mild tremors noted reflexes diminished a/p parkinsons disease continue dopaminergicsn and monitor for response or side effects 35 min phone call w daughter yesterday explained dopaminergic therapeutic adjustments will try to iniitate basal dopamine rate patient attempted inbija but not able to take it adequately will continue to advance as able explained risks of side effects and psychosis and intolerances of dopaminergics. daughter expressed understanding
--- NOTE | 2020-04-16 08:43 | Diagnostic Imaging Report ---
KUB Comparison: 04/14/2020 History: Abdominal distention Findings: Diffuse colonic distention with gas but within broad limits of normal. The gas is seen all the way to the rectum. There is no abnormal cecal or sigmoid colonic distention. Calcific densities in the left upper quadrant and right upper quadrant could possibly represent renal calculi. Cholecystectomy clips. Vascular calcification. Severe kyphoscoliosis of the lumbar spine. No significant change compared with the previous exam. Diffuse colonic distention with gas but no definite bowel obstruction. Signed by: Viraj Rizo MD on 04/16/2020 8:39 AM
[2020-04-16] MEDS: NON-FORMULARY MEDICATION PO SCH ×2 (08:50→16:36)
[2020-04-16] MEDS: FAMOTIDINE 20 MG/2 ML VIAL IV SCH ×2 (09:46→17:15)
[2020-04-16] MEDS: ATORVASTATIN 10 MG TAB PO SCH (09:47)
[2020-04-16] MEDS: ZINC SULFATE 220 MG CAP NG SCH (09:47)
[2020-04-16] MEDS: CARVEDILOL 12.5 MG TAB PO SCH ×2 (09:47→17:15)
[2020-04-16] MEDS: PANTOPRAZOLE 40 MG 10ML VIAL IV SCH (09:47)
[2020-04-16] MEDS: ARTIFICIAL TEARS (OPTH) 15 ML BTL OU SCH ×2 (09:47→17:15)
[2020-04-16] MEDS: POTASSIUM CHLORIDE 20MEQ/100ML 100 ML IV SCH ×3 (09:47→17:15)
[2020-04-16] MEDS: ASCORBIC ACID 500 MG TAB PO SCH ×2 (09:48→17:15)
[2020-04-16] MEDS: OYST-CAL-D 500MG TABLET PO SCH ×2 (09:48→17:15)
[2020-04-16] MEDS: CYANOCOBALAMIN 1,000 MCG TAB PO SCH (09:48)
[2020-04-16] MEDS: AMLODIPINE BESYLATE 10 MG TAB PO SCH (09:48)
[2020-04-16] MEDS: LISINOPRIL 20 MG TAB PO SCH (09:48)
[2020-04-16] MEDS: AMANTADINE HCL 100 MG CAP PO SCH ×2 (09:48→17:15)
[2020-04-16] MEDS: CARBIDOPA/LEVODOPA 10/100 TAB PO SCH ×5 (09:48→21:21)
--- NOTE | 2020-04-16 09:50 | Progress Note ---
DATE: 04/16/2020 SUBJECTIVE: Ms. Tabor is a 80-year-old female with history of hypertension, Parkinson, and constipation, came to the emergency room with shortness of breath and changes in mental status. She was ruled in for COVID. She also was found to have a urinary tract infection. At the present time, she was transferred from ICU to the COVID unit. The overall prognosis of the patient is poor. Discussed with nurse. OBJECTIVE: VITAL SIGNS: Temperature is 98.6, blood pressure 122/81, respiratory rate 17, she is on room air, pulse oximetry is 96. LABORATORY DATA: On the blood work, white count 6.9, hemoglobin 12.7, hematocrit 38.3. Potassium 2.9, we are replacing. Calcium 6.9. Abdominal x-ray done today shows diffuse colonic distention with blood gas with no definite bowel obstruction. Chest x-ray done on the showed mild bibasilar patchy opacities. ASSESSMENT: 1. Viral pneumonia secondary to coronavirus disease infection. 2. Sepsis secondary to coronavirus disease and urinary tract infection. 3. Hypokalemia. 4. Parkinson disease. 5. Stercoral colitis. 6. Metabolic acidosis. PLAN: At the present time is to continue hydration as needed. Continue IV antibiotics. Continue Lovenox. PT, OT. Continue Parkinson medications. Replace potassium. I discussed with Dr. Gonzales the case and her prognosis is very poor. We think she will be a candidate for hospice, so I am going to get case management involved in the case, so we can get a hospice evaluation for this patient if okay with the family. MD BAL Castro/MODL /[id number]
[2020-04-16] MEDS ORDERED: POTASSIUM CHLORIDE 20MEQ/100ML 300 ML IV ONE (10:00)
--- NOTE | 2020-04-16 10:34 | NUR ---
SPOKE WITH DAUGHTER WHOM STATES SHE HAS ALREADY BEEN SPEAKING WITH [facility]. [phone] FAX [phone], [employer] IS THE CONTACT AT THAT COMPANY, FILED CHOICE AND IMM IN CHART AND FAXED CLINICALS TO COMPANY. 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 COVID FORM COMPLETED AND PUT IN CHART
--- NOTE | 2020-04-16 14:51 | NUR ---
RECEIVED CALL FROM [facility], THEY DO NOT HAVE STAFF TO COVER THE COVID PTS AT THIS TIME.
--- NOTE | 2020-04-16 15:18 | NUR ---
CALLED DAUGHTER AND LET HER KNOW THEY ARE NOT ACCEPTING PTS WITH COVID. GAVE THREE OPTIONS IN NETWORK AND SHE CHOSE [facility] FAXED CLINICALS AND NOTIFIED REP OF REFERRAL TO CALL FAMILY AND PLAN FOR DC TOMORROW.
--- NOTE | 2020-04-16 17:51 | Progress Note ---
DATE: SUBJECTIVE: The patient is still receiving potassium. She is oxygenating well on room air. She is receiving physical therapy. PHYSICAL EXAMINATION: VITAL SIGNS: The blood pressure is 128/98. Saturation is 97%. The pulse is 94. HEENT: Shows no facial swelling or erythema. CARDIAC: Reveals regular rate and rhythm with normal S1 and S2. LUNGS: Auscultation of lungs reveals rhonchorous breath sounds bilaterally. There is no wheezing. ABDOMEN: Soft and nontender. There is no rebound or guarding. EXTREMITIES: Shows no leg edema or calf tenderness. LABORATORY DATA: The potassium is 2.9. BUN to creatinine ratio is 9 to 0.44. Other electrolytes are significant for a calcium of 6.9 with an albumin of 1.8. IMPRESSION: 1. Hypokalemia. 2. Parkinson disease. 3. Viral pneumonia and COVID-19 infection. 4. Constipation. PLAN: 1. Continue to replace potassium. 2. Complete antibiotics. 3. Physical therapy. 4. Continue current Parkinson regimen. Vernon Tatum MD [facility] /[id number]
[2020-04-16] MEDS ORDERED: POTASSIUM CHLORIDE 20MEQ/15ML UDC NG ONE (18:00)
--- NOTE | 2020-04-16 20:30 | NUR ---
REPOSITIONED.BYRNE CARE GIVEN.ON NG TUBE TO WALL SUCTION.
[2020-04-16] MEDS: ROPINIROLE HCL 2 MG TAB PO SCH (21:21)
[2020-04-17 00:09] VITALS: BP 117/77
[2020-04-17] MEDS: VANCOMYCIN 250MG/5ML ORAL SOLN PO SCH ×4 (00:26→16:33)
[2020-04-17] MEDS: CARBIDOPA/LEVODOPA 10/100 TAB PO SCH ×5 (01:01→16:33)
--- NOTE | 2020-04-17 03:32 | NUR ---
MD Dave FOSTER IS IN THE UNIT TO SEE THE PATIENT.ORDERED TO START TUBE FEEDING 20 ML/HR WITH 50 ML H2O FLUSH EVERY 6 HRS.
[2020-04-17] MEDS: CARBIDOPA/LEVODOPA 25/100 TAB PO SCH ×2 (05:05→12:01)
[2020-04-17 05:20] VITALS: BP 157/89
--- NOTE | 2020-04-17 05:24 | NUR ---
Changed central line dressing.patient tolerated well.
[2020-04-17 05:57] LABS: ALBUMIN 1.9 g/dL (3.5-5.0); ALBUMIN/GLOBULIN RATIO 0.8 (0.8-2.0); ALKALINE PHOSPHATASE 53 IU/L (40-150); BLOOD UREA NITROGEN 7 mg/dL (7-26); BUN/CREATININE RATIO 16 (6-25); CALCIUM 7.1 mg/dL (8.4-10.2); CARBON DIOXIDE 28 mmol/L (22-29); CHLORIDE 101 mmol/L (98-107); CREATININE, SERUM 0.45 mg/dL (0.57-1.11); EST GLOMERULAR FILTRATION RATE > 60 ML/MIN (60-); GLUCOSE 71 mg/dL (74-118); SODIUM 133 mmol/L (136-145)
[2020-04-17 05:58] LABS: ALANINE AMINOTRANSFERASE < 6 IU/L (0-55)
--- NOTE | 2020-04-17 07:58 | NUR ---
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
[2020-04-17 08:32] VITALS: BP 148/95
--- NOTE | 2020-04-17 08:45 | NUR ---
PARKINSONIAN NON ONFOCAL 66 97.9 133/74 Patient awake, bradykinetic eom paresis CARDIAC: Regular rate and rhythm with normal S1, S2. LUNGS: Auscultation of lungs reveals crackles at the bases. There is no wheezing. ABDOMEN: Soft, nontender. There is no rebound or guarding. EXTREMITIES: No leg edema or calf tenderness. There is no cyanosis or clubbing. SKIN: No rashes. NEUROLOGICAL: No focal abnormalities. increased tone slow responsiveness mild tremors noted reflexes diminished a/p parkinsons disease - acute on chronic progression due to neurophyisologicla stress continue dopaminergicsn and monitor for response or side effects 35 min phone call w daughter Monday. explained dopaminergic therapeutic adjustments will try to iniitate basal dopamine rate patient attempted inbija but not able to take it adequately will continue to advance as able explained risks of side effects and psychosis and intolerances of dopaminergics. daughter expressed understanding basal sinemet w/ increase doses q 6 entacapone to be reinitiated at home sinemet and amantadine onboard
[2020-04-17] MEDS: NON-FORMULARY MEDICATION PO SCH ×3 (09:00→16:33)
[2020-04-17] MEDS: AMANTADINE HCL 100 MG CAP PO SCH ×2 (09:03→16:33)
[2020-04-17] MEDS: CYANOCOBALAMIN 1,000 MCG TAB PO SCH (09:03)
[2020-04-17] MEDS: LISINOPRIL 20 MG TAB PO SCH (09:03)
[2020-04-17] MEDS: ASCORBIC ACID 500 MG TAB PO SCH ×2 (09:03→16:33)
[2020-04-17] MEDS: ATORVASTATIN 10 MG TAB PO SCH (09:20)
[2020-04-17] MEDS: PANTOPRAZOLE 40 MG 10ML VIAL IV SCH (09:20)
[2020-04-17] MEDS: ZINC SULFATE 220 MG CAP NG SCH (09:20)
[2020-04-17] MEDS: OYST-CAL-D 500MG TABLET PO SCH ×2 (09:20→16:33)
[2020-04-17] MEDS: FAMOTIDINE 20 MG/2 ML VIAL IV SCH ×2 (09:20→16:33)
[2020-04-17] MEDS: ARTIFICIAL TEARS (OPTH) 15 ML BTL OU SCH ×2 (09:20→16:32)
[2020-04-17] MEDS: CARVEDILOL 12.5 MG TAB PO SCH ×2 (09:20→16:33)
[2020-04-17] MEDS: AMLODIPINE BESYLATE 10 MG TAB PO SCH (09:21)
[2020-04-17 09:32] VITALS: BP 148/95
--- NOTE | 2020-04-17 10:09 | Discharge Summary ---
HOSPITAL COURSE: Ms. Tabor is a 80-year-old female with history of hypertension, Parkinson disease, constipation, who came to the emergency room with shortness of breath and changes in mental status. She ruled in for COVID. She also was found to have a urinary tract infection, was in the ICU for a few days, transferred to the COVID unit. At present time, due to all her medical problems, the patient is going to be hospice and she is going to be discharged with all the equipment on hospice. PHYSICAL EXAMINATION: VITAL SIGNS: Temperature is 97.8, blood pressure 157/89, heart rate is 66, respiratory rate is 18. LABORATORY DATA: On the lab work, white count 6.29, hemoglobin 12.7, hematocrit 38.3. Potassium is 4.0, creatinine is 0.45, glucose is 71. DISCHARGE DIAGNOSES: 1. Viral pneumonia secondary coronavirus disease infection. 2. Sepsis secondary to coronavirus infection and urinary tract infection. 3. Hypokalemia, resolved. 4. Parkinson disease. 5. Stercoral colitis. 6. Metabolic acidosis, improved. PLAN: Plan at present time is to discharge the patient with hospice. All the equipment will be there today. Potassium today is normal. The patient has multiple medical problems and she has a very poor prognosis. All this was discussed with Dr. Gonzales. Please see home medication reconciliation list. MD BAL Castro/NICKIE /[id number]
[2020-04-17] MEDS: D5.45%NS/KCL 20MEQ 1,000 ML IV SCH (10:11)
[2020-04-17 13:22] VITALS: BP 127/83
--- NOTE | 2020-04-17 17:00 | NUR ---
Spoke to Justine, Daughter, about patient's diet. Aware of speech recommendations for pleasure feeding and aware risks for aspiration. Justine states "I spoke with speech therapist and I want mother to come home." Hospice aware and transportation set up by hospice.
[2020-04-17 17:32] VITALS: BP 126/83
--- NOTE | 2020-04-17 18:09 | NUR ---
Right IJ discontinued as ordered. No signs of infiltration noted. 2x2 gauze and tegaderm placed. NG tube discontinue as ordered. Patient tolerated well.
--- NOTE | 2020-04-17 18:17 | NUR ---
Taken via stretcher by [facility].AAOx1 to person. No s/s of acute distress noted. Dressing to right neck clean, dry, and intact. Transfer package given to EMS. All personal belongings taken with patient.
== END 2020-04-17 18:20 | disposition hospice, home (50) | DRG 871 ==
LOC: ER 22:42 → ERHOLD 04-09 04:26 → COVIDICU 04-09 22:30 → IMCU 04-13 23:03
PROVIDERS: ADMIT Internal Medicine; ATTEND Internal Medicine
PROC: 02HV33Z Insertion of Infusion Device into Superior Vena Cava, Percutaneous Approach (ICD-10-PCS; principal; 2020-04-13)
DX: A41.89 Other specified sepsis (principal); U07.1 COVID-19; J12.89 Other viral pneumonia; G93.41 Metabolic encephalopathy; R65.21 Severe sepsis with septic shock; E87.2 Acidosis; N39.0 Urinary tract infection, site not specified; N17.9 Acute kidney failure, unspecified; E87.6 Hypokalemia; G20 Parkinson's disease; K52.89 Other specified noninfective gastroenteritis and colitis; Z66 Do not resuscitate; K59.00 Constipation, unspecified; E83.51 Hypocalcemia; E11.9 Type 2 diabetes mellitus without complications; Z51.5 Encounter for palliative care
CPT/HCPCS: 36415; 51700; 70450; 71045; 74018; 74176; 80048; 80053; 80202; 81001; 82550; 82553; 82570; 82805; 82948; 83605; 83735; 83880; 84100; 84132; 84300; 84484; 84550; 85007; 85025; 85027; 85610; 87040; 87071; 87186; 87205; 87635; 93005; 93306; 93970; 96361; 97139; 99285; J0360; J0610; J0696; J1650; J1817; J2001; J2543; J3370; J3475; J3480; J7030; J7050; J7799